=== PATIENT | male | born 1950 | race Caucasian/White ===

== ENCOUNTER 2018-06-23 08:40 | Emergency (ER) | payer MEDICARE, OTHER ==
[2018-06-23] MEDS ORDERED: SODIUM CHLORIDE 0.9% 1,000 ML IV STA ×2 (09:02)
--- NOTE | 2018-06-23 09:17 | ED ---
Weakness HPI - General Chief complaint: Chest Pain Stated complaint: LOW BLOOD PRESSURE Time Seen by Provider: 06/23/18 09:01 Source: patient, RN notes reviewed, old records reviewed Mode of arrival: ambulatory - History of Present Illness Initial comments: This is a 67-year-old male to the ER for evaluation. Presents today for evaluation regarding abnormally low blood pressure abnormally low diastolic blood pressure. Patient remains asymptomatic from this. He does have a history of heart valve surgery. Patient is on 3 blood pressure medications with no recent changes. No recent diet or appetite changes. No recent weight gain or weight loss. MD Complaint: generalized weakness (Patient is without significant complaint of weakness, here for blood pressure recheck) -: week(s) Location: other (no complaints) Severity: mild Consistency: constant Improves with: none Worsens with: none Associated Symptoms: denies other symptoms - Related Data Home Medications Medication Instructions Recorded Confirmed Aspirin 81 mg PO DAILY 05/17/14 06/23/18 Atorvastatin [Lipitor] 40 mg PO HS 05/17/14 06/23/18 Metoprolol Succinate (ER) [Toprol 25 mg PO DAILY 05/17/14 06/23/18 XL] Hydrochlorothiazide 25 mg PO DAILY 06/23/18 06/23/18 Losartan [Cozaar] 25 mg PO DAILY 06/23/18 06/23/18 sitaGLIPtin [Januvia] 100 mg PO DAILY 06/23/18 06/23/18 Allergies Allergy/AdvReac Type Severity Reaction Status Date / Time No Known Allergies Allergy Verified 06/23/18 10:35 Review of Systems ROS Statement: Those systems with pertinent positive or pertinent negative responses have been documented in the HPI. ROS Other: All systems not noted in ROS Statement are negative. Past Medical History Past Medical History: Diabetes Mellitus, Hyperlipidemia, Hypertension History of Any Multi-Drug Resistant Organisms: None Reported Past Surgical History: Cardiac Valve Replacement, Heart Catheterization, Orthopedic Surgery Additional Past Surgical History / Comment(s): rt rotator cuff repair. colonoscopy. aortic valve replacement 05/2013 Past Anesthesia/Blood Transfusion Reactions: No Reported Reaction Smoking Status: Never smoker - Past Family History Brother(s) Family Medical History: Cancer General Exam General appearance: alert, in no apparent distress Head exam: Present: atraumatic, normocephalic, normal inspection Eye exam: Present: normal appearance, PERRL, EOMI. Absent: scleral icterus, conjunctival injection, periorbital swelling ENT exam: Present: normal exam, mucous membranes moist Neck exam: Present: normal inspection. Absent: tenderness, meningismus, lymphadenopathy Respiratory exam: Present: normal lung sounds bilaterally. Absent: respiratory distress, wheezes, rales, rhonchi, stridor Cardiovascular Exam: Present: regular rate, normal rhythm, normal heart sounds, systolic murmur, diastolic murmur, other (Significant murmur). Absent: rubs, gallop, clicks GI/Abdominal exam: Present: soft, normal bowel sounds. Absent: distended, tenderness, guarding, rebound, rigid Extremities exam: Present: normal inspection, full ROM, normal capillary refill. Absent: tenderness, pedal edema, joint swelling, calf tenderness Back exam: Present: normal inspection Neurological exam: Present: alert, oriented X3, CN II-XII intact Psychiatric exam: Present: normal affect, normal mood Skin exam: Present: warm, dry, intact, normal color. Absent: rash Course Vital Signs 06/23/18 06/23/18 08:52 09:53 Temperature 97.5 F L Pulse Rate 63 61 Respiratory 18 16 Rate Blood Pressure 138/57 149/58 O2 Sat by Pulse 100 100 Oximetry - Reevaluation(s) Reevaluation #1: 06/23/18 10:12 Medical records reviewed Reevaluation #2: 06/23/18 10:12 Patient's blood pressure was significantly reviewed reviewed with low diastolic pressure, patient's medication list is also currently reviewed Reevaluation #3: 06/23/18 11:20 Will stop patient's hydrochlorothiazide, patient encouraged oral fluid intake, will follow-up with commissary assistant for further management diastolic hypotension EKG Findings - EKG Comments: EKG Findings:: EKG shows sinus rhythm rate of 60, FL 176, QRS 80, QTC 432 Medical Decision Making - Medical Decision Making 67 male the ER for evaluation. Patient isn't significantly evaluation regarding low diastolic blood pressure. We'll remove hydrochlorothiazide patient's blood pressure medication and discharged - Lab Data Result diagrams: 06/23/18 09:50 06/23/18 09:50 Lab Results 06/23/18 06/23/18 06/23/18 Range/Units 09:50 09:50 09:50 WBC 7.2 (3.8-10.6) k/uL RBC 4.06 L (4.30-5.90) m/uL Hgb 12.5 L (13.0-17.5) gm/dL Hct 37.6 L (39.0-53.0) % MCV 92.8 (80.0-100.0) fL MCH 30.8 (25.0-35.0) pg MCHC 33.3 (31.0-37.0) g/dL RDW 13.4 (11.5-15.5) % Plt Count 194 (150-450) k/uL Neutrophils % 65 % Lymphocytes % 23 % Monocytes % 7 % Eosinophils % 2 % Basophils % 1 % Neutrophils # 4.7 (1.3-7.7) k/uL Lymphocytes # 1.7 (1.0-4.8) k/uL Monocytes # 0.5 (0-1.0) k/uL Eosinophils # 0.2 (0-0.7) k/uL Basophils # 0.1 (0-0.2) k/uL PT (9.0-12.0) sec INR (<1.2) APTT (22.0-30.0) sec Sodium 142 (137-145) mmol/L Potassium 4.6 (3.5-5.1) mmol/L Chloride 109 H (98-107) mmol/L Carbon Dioxide 27 (22-30) mmol/L Anion Gap 6 mmol/L BUN 34 H (9-20) mg/dL Creatinine 1.83 H (0.66-1.25) mg/dL Est GFR (CKD-EPI)AfAm 43 (>60 ml/min/1.73 sqM) Est GFR (CKD-EPI)NonAf 37 (>60 ml/min/1.73 sqM) Glucose 129 H (74-99) mg/dL Plasma Lactic Acid Jay (0.7-2.0) mmol/L Calcium 9.2 (8.4-10.2) mg/dL Phosphorus 3.4 (2.5-4.5) mg/dL Magnesium 2.2 (1.6-2.3) mg/dL Total Bilirubin 0.5 (0.2-1.3) mg/dL AST 22 (17-59) U/L ALT 26 (21-72) U/L Alkaline Phosphatase 62 (38-126) U/L Total Creatine Kinase 101 (55-170) U/L CK-MB (CK-2) 1.6 (0.0-2.4) ng/mL CK-MB (CK-2) Rel Index 1.6 Troponin I <0.012 (0.000-0.034) ng/mL Total Protein 6.6 (6.3-8.2) g/dL Albumin 3.8 (3.5-5.0) g/dL 06/23/18 06/23/18 Range/Units 09:50 09:50 WBC (3.8-10.6) k/uL RBC (4.30-5.90) m/uL Hgb (13.0-17.5) gm/dL Hct (39.0-53.0) % MCV (80.0-100.0) fL MCH (25.0-35.0) pg MCHC (31.0-37.0) g/dL RDW (11.5-15.5) % Plt Count (150-450) k/uL Neutrophils % % Lymphocytes % % Monocytes % % Eosinophils % % Basophils % % Neutrophils # (1.3-7.7) k/uL Lymphocytes # (1.0-4.8) k/uL Monocytes # (0-1.0) k/uL Eosinophils # (0-0.7) k/uL Basophils # (0-0.2) k/uL PT 10.5 (9.0-12.0) sec INR 1.0 (<1.2) APTT 25.1 (22.0-30.0) sec Sodium (137-145) mmol/L Potassium (3.5-5.1) mmol/L Chloride (98-107) mmol/L Carbon Dioxide (22-30) mmol/L Anion Gap mmol/L BUN (9-20) mg/dL Creatinine (0.66-1.25) mg/dL Est GFR (CKD-EPI)AfAm (>60 ml/min/1.73 sqM) Est GFR (CKD-EPI)NonAf (>60 ml/min/1.73 sqM) Glucose (74-99) mg/dL Plasma Lactic Acid Jay 1.2 (0.7-2.0) mmol/L Calcium (8.4-10.2) mg/dL Phosphorus (2.5-4.5) mg/dL Magnesium (1.6-2.3) mg/dL Total Bilirubin (0.2-1.3) mg/dL AST (17-59) U/L ALT (21-72) U/L Alkaline Phosphatase (38-126) U/L Total Creatine Kinase (55-170) U/L CK-MB (CK-2) (0.0-2.4) ng/mL CK-MB (CK-2) Rel Index Troponin I (0.000-0.034) ng/mL Total Protein (6.3-8.2) g/dL Albumin (3.5-5.0) g/dL - Radiology Data Radiology results: report reviewed (Chest x-rays negative for acute disease), image reviewed Disposition Clinical Impression: Hypotension Narrative: Diastolic Hypotension Disposition: HOME SELF-CARE Condition: Good Instructions: Hypotension (ED) Is patient prescribed a controlled substance at d/c from ED?: No Referrals: Seng Murrieta MD [Primary Care Provider] - 1-2 days
--- NOTE | 2018-06-23 10:08 | XR ---
EXAMINATION TYPE: XR chest 2V DATE OF EXAM: 06/23/2018 COMPARISON: 09/13/2013 HISTORY: Shortness of breath TECHNIQUE: Frontal and lateral views of the chest are obtained. FINDINGS: Scattered senescent parenchymal changes noted. Hyperinflation compatible with COPD. No evidence for infiltrate. No evidence for atelectasis. Heart size is stable. Mediastinal structures are stable and grossly unremarkable. No evidence for hilar prominence. Degenerative changes dorsal spine. IMPRESSION: 1. No evidence for acute pulmonary disease.
[2018-06-23 10:24] LABS: Basophils # (A) 0.1 k/uL (0-0.2); Basophils % (A) 1 %; Eosinophils # (A) 0.2 k/uL (0-0.7); Eosinophils % (A) 2 %; HCT 37.6 % (39.0-53.0); HGB 12.5 gm/dL (13.0-17.5); Lymphocytes # (A) 1.7 k/uL (1.0-4.8); Lymphocytes % (A) 23 %; MCH 30.8 pg (25.0-35.0); MCHC 33.3 g/dL (31.0-37.0); MCV 92.8 fL (80.0-100.0); Mean Platelet Volume 7.6; Monocytes # (A) 0.5 k/uL (0-1.0); Monocytes % (A) 7 %; Neutrophils # (A) 4.7 k/uL (1.3-7.7); Neutrophils % (A) 65 %; Platelet Count 194 k/uL (150-450); RBC 4.06 m/uL (4.30-5.90); RDW 13.4 % (11.5-15.5); WBC 7.2 k/uL (3.8-10.6)
[2018-06-23 10:35] LABS: Albumin 3.8 g/dL (3.5-5.0); Calcium 9.2 mg/dL (8.4-10.2); Magnesium 2.2 mg/dL (1.6-2.3); Phosphorus 3.4 mg/dL (2.5-4.5); Potassium 4.6 mmol/L (3.5-5.1); Total Bilirubin 0.5 mg/dL (0.2-1.3); Total Protein 6.6 g/dL (6.3-8.2)
[2018-06-23 10:36] LABS: Partial Thromboplastin Time 25.1 sec (22.0-30.0); Prothrombin Time 10.5 sec (9.0-12.0)
[2018-06-23 10:46] LABS: Creatine Kinase 101 U/L (55-170)
[2018-06-23 11:00] LABS: Creatine Kinase MB 1.6 ng/mL (0.0-2.4); Troponin I <0.012 ng/mL (0.000-0.034)
[2018-06-23 11:34] LABS: Appearance,Urine Clear (Clear); Bilirubin,Urine Negative (Negative); Blood,Urine Negative (Negative); Color,Urine Light Yellow; Glucose,Urine (UA) Negative (Negative); Ketones,Urine Negative (Negative); Leukocyte Esterase,Urine Negative (Negative); Nitrite,Urine Negative (Negative); PH, Urine 5.5 (5.0-8.0); Protein,Urine Negative (Negative); Specific Gravity,Urine 1.013 (1.001-1.035); Urobilinogen,Urine <2.0 mg/dL (<2.0)
[2018-06-23 11:49] VITALS: BP 138/59; PULSE 58; RESP 18; TEMP 98
== END 2018-06-23 11:49 | disposition home or self-care (01) ==
LOC: EC 08:40
DX: I95.9 Hypotension, unspecified (principal); R07.9 Chest pain, unspecified; E11.9 Type 2 diabetes mellitus without complications; E78.5 Hyperlipidemia, unspecified; I10 Essential (primary) hypertension; Z95.2 Presence of prosthetic heart valve; Z95.818 Presence of other cardiac implants and grafts; Z79.82 Long term (current) use of aspirin; Z79.84 Long term (current) use of oral hypoglycemic drugs; Z79.899 Other long term (current) drug therapy
CPT/HCPCS: 36415; 71046; 80053; 81003; 82550; 82553; 83605; 83735; 83880; 84100; 84484; 85025; 85610; 85730; 87086; 93005; 96360; 96361; 99285

== ENCOUNTER 2018-06-24 16:12 | Inpatient (IN) | payer MEDICARE, OTHER ==
--- NOTE | 2018-06-24 16:54 | ED ---
General Adult HPI - General Chief complaint: Chest Pain Stated complaint: Hypotension, chest pain, Sent by Dr. Lara Time Seen by Provider: 06/24/18 16:30 Source: patient, family, RN notes reviewed Mode of arrival: ambulatory Limitations: no limitations - History of Present Illness Initial comments: Patient is a pleasant 67-year-old male presenting to the emergency department after being seen in cardiology office. Patient was seen by Dr. Hester. Patient does have history of aortic valve replacement and previous stenosis. Patient today had aortic insufficiency. There was question of possible infection and Dr. Hester requests blood cultures. Patient has noticed very low diastolic blood pressures at home over the past couple of days. Patient has very mild discomfort described as an ache in the lower chest. No dyspnea. No nausea vomiting. No diaphoresis. Patient did have dental work done recently however was on antibiotics for that. - Related Data Home Medications Medication Instructions Recorded Confirmed Aspirin 81 mg PO DAILY 05/17/14 06/24/18 Atorvastatin [Lipitor] 40 mg PO HS 05/17/14 06/24/18 Metoprolol Succinate (ER) [Toprol 25 mg PO DAILY 05/17/14 06/24/18 XL] Hydrochlorothiazide 25 mg PO DAILY 06/23/18 06/24/18 Losartan [Cozaar] 25 mg PO DAILY 06/23/18 06/24/18 sitaGLIPtin [Januvia] 100 mg PO DAILY 06/23/18 06/24/18 Allergies Allergy/AdvReac Type Severity Reaction Status Date / Time No Known Allergies Allergy Verified 06/24/18 16:53 Review of Systems ROS Statement: Those systems with pertinent positive or pertinent negative responses have been documented in the HPI. ROS Other: All systems not noted in ROS Statement are negative. Constitutional: Denies: fever, chills Eyes: Denies: eye pain ENT: Denies: ear pain Respiratory: Denies: cough, dyspnea Cardiovascular: Reports: chest pain Endocrine: Reports: fatigue Gastrointestinal: Denies: abdominal pain Genitourinary: Denies: dysuria Musculoskeletal: Denies: back pain Skin: Denies: rash Neurological: Denies: weakness Past Medical History Past Medical History: Diabetes Mellitus, Hyperlipidemia, Hypertension History of Any Multi-Drug Resistant Organisms: None Reported Past Surgical History: Cardiac Valve Replacement, Heart Catheterization, Orthopedic Surgery Additional Past Surgical History / Comment(s): rt rotator cuff repair. colonoscopy. aortic valve replacement 05/2013 Past Anesthesia/Blood Transfusion Reactions: No Reported Reaction Past Psychological History: No Psychological Hx Reported Smoking Status: Never smoker Past Alcohol Use History: None Reported Past Drug Use History: None Reported - Past Family History Brother(s) Family Medical History: Cancer General Exam Limitations: no limitations General appearance: alert, in no apparent distress Head exam: Present: atraumatic Eye exam: Present: normal appearance, PERRL ENT exam: Present: normal oropharynx Neck exam: Present: normal inspection Respiratory exam: Present: normal lung sounds bilaterally. Absent: chest wall tenderness Cardiovascular Exam: Present: regular rate, normal rhythm, systolic murmur, diastolic murmur Expanded Peripheral pulses: 2+: Radial (R), Radial (L), Posterior Tibialis (R), Posterior Tibialis (L) GI/Abdominal exam: Present: soft. Absent: tenderness Extremities exam: Present: normal inspection. Absent: pedal edema, calf tenderness Neurological exam: Present: alert Psychiatric exam: Present: normal affect, normal mood Skin exam: Present: normal color Course Vital Signs 06/24/18 16:19 Temperature 97.6 F Pulse Rate 64 Respiratory 18 Rate Blood Pressure 147/55 O2 Sat by Pulse 99 Oximetry EKG Findings - EKG Comments: EKG Findings:: Normal sinus rhythm 61. AR 170. QRS 82. QT 434. QTC 436. Normal axis. Normal QRS. No acute ST change. Medical Decision Making - Medical Decision Making Case was discussed in detail with Dr. Crabtree, covering for Dr. Murrieta, who will admit. Consult will be placed for cardiology as well as infectious disease as was requested by cardiology. - Lab Data Result diagrams: 06/24/18 17:05 06/24/18 17:05 Lab Results 06/24/18 06/24/18 06/24/18 Range/Units 17:05 17:05 17:05 WBC 7.6 (3.8-10.6) k/uL RBC 4.19 L (4.30-5.90) m/uL Hgb 12.6 L (13.0-17.5) gm/dL Hct 38.8 L (39.0-53.0) % MCV 92.5 (80.0-100.0) fL MCH 30.1 (25.0-35.0) pg MCHC 32.6 (31.0-37.0) g/dL RDW 13.4 (11.5-15.5) % Plt Count 200 (150-450) k/uL Neutrophils % 71 % Lymphocytes % 20 % Monocytes % 6 % Eosinophils % 2 % Basophils % 1 % Neutrophils # 5.4 (1.3-7.7) k/uL Lymphocytes # 1.5 (1.0-4.8) k/uL Monocytes # 0.4 (0-1.0) k/uL Eosinophils # 0.1 (0-0.7) k/uL Basophils # 0.1 (0-0.2) k/uL PT (9.0-12.0) sec INR (<1.2) APTT (22.0-30.0) sec Sodium 140 (137-145) mmol/L Potassium 4.7 (3.5-5.1) mmol/L Chloride 108 H (98-107) mmol/L Carbon Dioxide 25 (22-30) mmol/L Anion Gap 7 mmol/L BUN 36 H (9-20) mg/dL Creatinine 1.98 H (0.66-1.25) mg/dL Est GFR (CKD-EPI)AfAm 39 (>60 ml/min/1.73 sqM) Est GFR (CKD-EPI)NonAf 33 (>60 ml/min/1.73 sqM) Glucose 166 H (74-99) mg/dL Plasma Lactic Acid Jay (0.7-2.0) mmol/L Calcium 9.2 (8.4-10.2) mg/dL Total Bilirubin 0.4 (0.2-1.3) mg/dL AST 41 (17-59) U/L ALT 45 (21-72) U/L Alkaline Phosphatase 65 (38-126) U/L Total Creatine Kinase 118 (55-170) U/L CK-MB (CK-2) 1.7 (0.0-2.4) ng/mL CK-MB (CK-2) Rel Index 1.4 Troponin I <0.012 (0.000-0.034) ng/mL Total Protein 6.6 (6.3-8.2) g/dL Albumin 4.0 (3.5-5.0) g/dL Urine Color Urine Appearance (Clear) Urine pH (5.0-8.0) Ur Specific [place] (1.001-1.035) Urine Protein (Negative) Urine Glucose (UA) (Negative) Urine Ketones (Negative) Urine Blood (Negative) Urine Nitrite (Negative) Urine Bilirubin (Negative) Urine Urobilinogen (<2.0) mg/dL Ur Leukocyte Esterase (Negative) 06/24/18 06/24/18 06/24/18 Range/Units 17:05 17:05 17:05 WBC (3.8-10.6) k/uL RBC (4.30-5.90) m/uL Hgb (13.0-17.5) gm/dL Hct (39.0-53.0) % MCV (80.0-100.0) fL MCH (25.0-35.0) pg MCHC (31.0-37.0) g/dL RDW (11.5-15.5) % Plt Count (150-450) k/uL Neutrophils % % Lymphocytes % % Monocytes % % Eosinophils % % Basophils % % Neutrophils # (1.3-7.7) k/uL Lymphocytes # (1.0-4.8) k/uL Monocytes # (0-1.0) k/uL Eosinophils # (0-0.7) k/uL Basophils # (0-0.2) k/uL PT 10.9 (9.0-12.0) sec INR 1.0 (<1.2) APTT 24.9 (22.0-30.0) sec Sodium (137-145) mmol/L Potassium (3.5-5.1) mmol/L Chloride (98-107) mmol/L Carbon Dioxide (22-30) mmol/L Anion Gap mmol/L BUN (9-20) mg/dL Creatinine (0.66-1.25) mg/dL Est GFR (CKD-EPI)AfAm (>60 ml/min/1.73 sqM) Est GFR (CKD-EPI)NonAf (>60 ml/min/1.73 sqM) Glucose (74-99) mg/dL Plasma Lactic Acid Jay 0.9 (0.7-2.0) mmol/L Calcium (8.4-10.2) mg/dL Total Bilirubin (0.2-1.3) mg/dL AST (17-59) U/L ALT (21-72) U/L Alkaline Phosphatase (38-126) U/L Total Creatine Kinase (55-170) U/L CK-MB (CK-2) (0.0-2.4) ng/mL CK-MB (CK-2) Rel Index Troponin I (0.000-0.034) ng/mL Total Protein (6.3-8.2) g/dL Albumin (3.5-5.0) g/dL Urine Color Yellow Urine Appearance Clear (Clear) Urine pH 5.5 (5.0-8.0) Ur Specific [place] 1.015 (1.001-1.035) Urine Protein Trace H (Negative) Urine Glucose (UA) Negative (Negative) Urine Ketones Negative (Negative) Urine Blood Negative (Negative) Urine Nitrite Negative (Negative) Urine Bilirubin Negative (Negative) Urine Urobilinogen <2.0 (<2.0) mg/dL Ur Leukocyte Esterase Negative (Negative) - Radiology Data Radiology results: image reviewed (Chest x-ray shows no acute process) Disposition Clinical Impression: Chest pain Disposition: ADMITTED IP TO THIS HOSP Is patient prescribed a controlled substance at d/c from ED?: No Referrals: Seng Murrieta MD [Primary Care Provider] - 1-2 days Decision Time: 18:20
[2018-06-24] MEDS ORDERED: CEFEPIME 2 GM in SODIUM CHLORIDE 0.9% 50 ML IVPB STA (17:05)
[2018-06-24 17:32] LABS: Basophils # (A) 0.1 k/uL (0-0.2); Basophils % (A) 1 %; Eosinophils # (A) 0.1 k/uL (0-0.7); Eosinophils % (A) 2 %; HCT 38.8 % (39.0-53.0); HGB 12.6 gm/dL (13.0-17.5); Lymphocytes # (A) 1.5 k/uL (1.0-4.8); Lymphocytes % (A) 20 %; MCH 30.1 pg (25.0-35.0); MCHC 32.6 g/dL (31.0-37.0); MCV 92.5 fL (80.0-100.0); Mean Platelet Volume 7.7; Monocytes # (A) 0.4 k/uL (0-1.0); Monocytes % (A) 6 %; Neutrophils # (A) 5.4 k/uL (1.3-7.7); Neutrophils % (A) 71 %; Platelet Count 200 k/uL (150-450); RBC 4.19 m/uL (4.30-5.90); RDW 13.4 % (11.5-15.5); WBC 7.6 k/uL (3.8-10.6)
[2018-06-24 17:34] LABS: Appearance,Urine Clear (Clear); Bilirubin,Urine Negative (Negative); Blood,Urine Negative (Negative); Color,Urine Yellow; Glucose,Urine (UA) Negative (Negative); Ketones,Urine Negative (Negative); Leukocyte Esterase,Urine Negative (Negative); Nitrite,Urine Negative (Negative); PH, Urine 5.5 (5.0-8.0); Protein,Urine Trace (Negative); Specific Gravity,Urine 1.015 (1.001-1.035); Urobilinogen,Urine <2.0 mg/dL (<2.0)
[2018-06-24 17:38] LABS: Calcium 9.2 mg/dL (8.4-10.2); Potassium 4.7 mmol/L (3.5-5.1); Total Bilirubin 0.4 mg/dL (0.2-1.3); Total Protein 6.6 g/dL (6.3-8.2)
[2018-06-24 17:41] LABS: Partial Thromboplastin Time 24.9 sec (22.0-30.0); Prothrombin Time 10.9 sec (9.0-12.0)
[2018-06-24 18:03] LABS: Creatine Kinase 118 U/L (55-170)
--- NOTE | 2018-06-24 18:06 | XR ---
EXAMINATION TYPE: XR chest 2V DATE OF EXAM: 06/24/2018 COMPARISON: 06/23/2018 HISTORY: Chest pain TECHNIQUE: Frontal and lateral views of the chest are obtained. FINDINGS: There is no heart failure nor confluent pneumonic infiltrate. Costophrenic angles are wyatt r. There are sternal wires. Heart size is normal. There are chest leads. IMPRESSION: No active cardiopulmonary disease. Normal heart. No change.
[2018-06-24 18:14] LABS: Creatine Kinase MB 1.7 ng/mL (0.0-2.4); Troponin I <0.012 ng/mL (0.000-0.034)
[2018-06-24] MEDS ORDERED: NITROGLYCERIN SL TABS 0.4 MG TAB SUBLINGUAL PRN (18:20)
[2018-06-24] MEDS ORDERED: ASPIRIN 81 MG PO STA (18:20)
[2018-06-24] MEDS ORDERED: VANCOMYCIN IV PER PHARMACY 1 EACH MISC MISCELLANE PRN (18:55)
[2018-06-24] MEDS ORDERED: VANCOMYCIN 1,750 MG in SODIUM CHLORIDE 0.9% 500 ML 500 ML IVPB ONE (19:15)
[2018-06-24 21:31] LABS: Glucose,Whole Blood 145 mg/dL (75-99)
[2018-06-24] MEDS: INSULIN ASPART 100 UNIT/ML 1 ML 10 ML VIAL SQ SCH (22:12)
[2018-06-24] MEDS: ATORVASTATIN 40 MG TAB PO SCH (22:12)
[2018-06-24] MEDS ORDERED: NALOXONE 0.4 MG/ML 1 ML VIAL IV PRN (23:01)
--- NOTE | 2018-06-24 23:06 | P.HPIM ---
History of Present Illness H&P Date: 06/24/18 Chief Complaint: low diastolic blood pressure readings at home 67-year-old male with history of hypertension, CK D, diabetes mellitus. Patient reports that over the past 2 weeks he's been monitoring his blood pressure and noticed low diastolic blood pressure readings as low as 30 at times. This was totally asymptomatic but he grew concerned and upon follow-up with his jacket changer Dr. Hester he recommended admission to the hospital to rule out infective endocarditis. Due to findings of aortic valve insufficiency upon exam. Patient has history of aortic valve stenosis which was replaced back in 2012. Otherwise patient indicated that he is at his baseline status of health no new issues. He denies any fevers or chills denies any syncope dizziness or lightheadedness denies any palpitations. He does report some very mild chest pain 3-5 out of 10 in severity and the lower left side of chest that's precipitated by certain movements and resolves on its own. In the ED blood cultures were drawn prior to administration of antibiotics. Chest x-ray and EKG both unremarkable Review of Systems Pertinent positives as noted in HPI. All other systems were reviewed and are negative Past Medical History Past Medical History: Diabetes Mellitus, Hyperlipidemia, Hypertension, Osteoarthritis (OA) Additional Past Medical History / Comment(s): pt had dental work(crown) 6 weeks ago-took abx pre procedure. hx of aortic stensosis/murmur(had valve replacemnt 2012), uti, cataracts, shingles 2016 on chest.past exposure to agent orange History of Any Multi-Drug Resistant Organisms: None Reported Past Surgical History: Cardiac Valve Replacement, Heart Catheterization, Orthopedic Surgery Additional Past Surgical History / Comment(s): rt rotator cuff repair. colonoscopy, sharan. aortic valve replacement 05/2013, vasectomy 32 years ago Past Anesthesia/Blood Transfusion Reactions: No Reported Reaction Smoking Status: Never smoker - Past Family History Mother Additional Family Medical History / Comment(s): mom is 91 years old. had aortic stenosis/valve replacement Father Family Medical History: Diabetes Mellitus Additional Family Medical History / Comment(s): dad is 93 years old-late onset dm Brother(s) Family Medical History: Cancer Medications and Allergies Home Medications Medication Instructions Recorded Confirmed Type Aspirin 81 mg PO DAILY 05/17/14 06/24/18 History Atorvastatin [Lipitor] 40 mg PO HS 05/17/14 06/24/18 History Metoprolol Succinate (ER) [Toprol 25 mg PO DAILY 05/17/14 06/24/18 History XL] Hydrochlorothiazide 25 mg PO DAILY 06/23/18 06/24/18 History Losartan [Cozaar] 25 mg PO DAILY 06/23/18 06/24/18 History sitaGLIPtin [Januvia] 100 mg PO DAILY 06/23/18 06/24/18 History Allergies Allergy/AdvReac Type Severity Reaction Status Date / Time No Known Allergies Allergy Verified 06/24/18 16:53 Physical Exam Vitals: Vital Signs Temp Pulse Resp BP Pulse Ox 06/24/18 19:00 59 L 14 143/63 99 06/24/18 18:32 59 L 16 143/63 99 06/24/18 18:00 57 L 15 136/54 99 06/24/18 16:19 97.6 F 64 18 147/55 99 Intake and Output 06/24/18 06/24/18 06/24/18 06:59 14:59 22:59 Intake Total 270 Balance 270 Intake: Oral 270 Other: # Voids 1 Weight 81.647 kg Constitutional: No acute distress, conversant, pleasant Eyes: Anicteric sclerae, moist conjunctiva, no lid-lag Pupils equal round reactive to light ENMT: NC/AT Oropharynx clear, no erythema, exudates Neck: Supple, FROM, no masses, or JVD No carotid bruits No thyromegaly Lungs: Clear to auscultation Clear to percussion Normal respiratory effort, no accessory muscle use Cardiovascular: Heart regular in rate and rhythm, Diastolic murmur, no gallops, or rubs No peripheral edema Abdominal: Soft Nontender, no guarding, rebound or rigidity Abdomen moving with respiration Normoactive bowel sounds No hepatomegaly, No splenomegaly No palpable mass No abdominal wall hernia noted Skin: Normal temperature, tone, texture, turgor No induration No subcutaneous nodules No rash, lesions No ulcers Extremities: No digital cyanosis No clubbing Pedal pulses intact and symmetrical Radial pulses intact and symmetrical No calf tenderness Psychiatric: Alert and oriented to person, place and time Appropriate affect fair judgment Neuro Muscles Strength 5/5 in all 4 extremities Sensation to light touch grossly present throughout Cranial nerves II-XII grossly intact No focal sensory deficits Lymphatics: no palpable cervical or supraclavicular , or inguinal lymph nodes Results CBC & Chem 7: 06/24/18 17:05 06/24/18 17:05 Labs: Abnormal Lab Results - Last 24 Hours (Table) 06/24/18 06/24/18 06/24/18 Range/Units 17:05 17:05 17:05 RBC 4.19 L (4.30-5.90) m/uL Hgb 12.6 L (13.0-17.5) gm/dL Hct 38.8 L (39.0-53.0) % Chloride 108 H (98-107) mmol/L BUN 36 H (9-20) mg/dL Creatinine 1.98 H (0.66-1.25) mg/dL Glucose 166 H (74-99) mg/dL Urine Protein Trace H (Negative) Thrombosis Risk Factor Assmnt - Choose All That Apply Each Risk Factor Represents 2 Points: Age 61-74 years Thrombosis Risk Factor Assessment Total Risk Factor Score: 2 Thrombosis Risk Factor Assessment Level: Low Risk Assessment and Plan Assessment: 67-year-old male with history of COPD and hypertension admitted as an inpatient with anticipated length of stay more than 48 hours patient was referred to by Dr. Hester jacket changer upon seeing the patient in the outpatient clinic for low diastolic blood pressure readings patient was found to have aortic valve insufficiency which was replaced back in 2012 concerning this time for infection patient admitted for further workup and IV antibiotics Plan: Aortic valve insufficiency Cardiology sent for direct admit to rule out infective endocarditis Patient was started on vancomycin Discontinue cefepime Blood cultures were obtained Cardiology to consider transesophageal echo for closer look at the valve Patient otherwise denies any fevers or chills denies any symptoms related to aortic valve insufficiency at this time Patient had aortic valve replacement due to stenosis back in 2012 Other stable chronic conditions CK D stage III currently stable 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
[2018-06-24] MEDS: HEPARIN SODIUM,PORCINE 5,000 UNIT/ML 1 ML VIAL SQ SCH (23:48)
[2018-06-25 00:22] LABS: Creatine Kinase 94 U/L (55-170)
[2018-06-25 00:35] LABS: Creatine Kinase MB 1.3 ng/mL (0.0-2.4); Troponin I <0.012 ng/mL (0.000-0.034)
[2018-06-25] MEDS ORDERED: CEFEPIME 2 GM in SODIUM CHLORIDE 0.9% 50 ML IVPB SCH (05:00)
[2018-06-25 06:09] LABS: Glucose,Whole Blood 112 mg/dL (75-99)
[2018-06-25] MEDS: INSULIN ASPART 100 UNIT/ML 1 ML 10 ML VIAL SQ SCH ×4 (06:13→21:20)
[2018-06-25 06:26] LABS: Basophils % (A) 1 %; Eosinophils # (A) 0.1 k/uL (0-0.7); Eosinophils % (A) 2 %; HCT 35.1 % (39.0-53.0); HGB 11.5 gm/dL (13.0-17.5); Lymphocytes # (A) 1.8 k/uL (1.0-4.8); Lymphocytes % (A) 26 %; MCH 30.8 pg (25.0-35.0); MCHC 32.9 g/dL (31.0-37.0); MCV 93.5 fL (80.0-100.0); Mean Platelet Volume 7.7; Monocytes # (A) 0.4 k/uL (0-1.0); Monocytes % (A) 6 %; Neutrophils # (A) 4.6 k/uL (1.3-7.7); Neutrophils % (A) 64 %; Platelet Count 180 k/uL (150-450); RBC 3.75 m/uL (4.30-5.90); RDW 13.5 % (11.5-15.5); WBC 7.1 k/uL (3.8-10.6)
[2018-06-25 06:48] LABS: Albumin 3.1 g/dL (3.5-5.0); Calcium 8.8 mg/dL (8.4-10.2); Potassium 4.2 mmol/L (3.5-5.1); Total Bilirubin 0.7 mg/dL (0.2-1.3); Total Protein 5.6 g/dL (6.3-8.2)
[2018-06-25 07:02] LABS: Creatine Kinase 85 U/L (55-170)
[2018-06-25 07:15] LABS: Creatine Kinase MB 1.1 ng/mL (0.0-2.4); Troponin I <0.012 ng/mL (0.000-0.034)
[2018-06-25] MEDS: METOPROLOL SUCCINATE (ER) 25 MG TAB.ER.24H PO SCH (07:51)
[2018-06-25] MEDS: LOSARTAN 25 MG TAB PO SCH (07:51)
[2018-06-25] MEDS: ASPIRIN 325 MG TAB PO SCH (07:51)
[2018-06-25] MEDS: HYDROCHLOROTHIAZIDE 25 MG TAB PO SCH (07:51)
[2018-06-25] MEDS: HEPARIN SODIUM,PORCINE 5,000 UNIT/ML 1 ML VIAL SQ SCH ×3 (07:52→23:41)
[2018-06-25] MEDS: VANCOMYCIN 1,250 MG in SODIUM CHLORIDE 0.9% 250 ML IVPB SCH (07:52)
[2018-06-25 11:08] LABS: Glucose,Whole Blood 109 mg/dL (75-99)
--- NOTE | 2018-06-25 13:10 | P.CRDCN ---
History of Present Illness History of present illness: This is Dr. 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 There was no gingival intervention or cleaning performed Denies any fever chills or night sweats PLAN: Transesophageal echo I will await blood cultures Assessment of the aortic valve Discussed with Dr. Hester Discussed with Dr. Thompson Discussed with the patient and his HPI Patient denies any constitutional symptoms but he noted that his diastolic blood pressure was low and he could hear his heart pound and this reminded him of the time before his original aortic valve surgery when he had aortic regurgitation. A 2-D echo performed showed aortic regurgitation and he was sent to the hospital for evaluation for infective endocarditis ROS: No fever chills or rigors, no cough, phlegm or expectoration, no nausea, vomiting or diarrhea, no hematuria, dysuria, no musculoskeletal complaints, no strokes or seizures, no skin lesions. EXAMINATION Systolic blood pressure normal no JVD Soft systolic murmur but a clear diastolic murmur of aortic regurgitation Breath sounds are clear no rhonchi no crackles Abdomen soft nontender Extremities are warm no edema REVIEW OF LABS, ECG Normal white count of 7.1 thousand BUN 29 creatinine 1.7 to GFR in the mid 40s Normal sodium normal potassium Normal lactic acid Normal troponins 3 Past Medical History Past Medical History: Diabetes Mellitus, Hyperlipidemia, Hypertension, Osteoarthritis (OA) Additional Past Medical History / Comment(s): pt had dental work(crown) 6 weeks ago-took abx pre procedure. hx of aortic stensosis/murmur(had valve replacemnt 2012), uti, cataracts, shingles 2016 on chest.past exposure to agent orange History of Any Multi-Drug Resistant Organisms: None Reported Past Surgical History: Cardiac Valve Replacement, Heart Catheterization, Orthopedic Surgery Additional Past Surgical History / Comment(s): rt rotator cuff repair. colonoscopy, sharan. aortic valve replacement 05/2013, vasectomy 32 years ago Past Anesthesia/Blood Transfusion Reactions: No Reported Reaction Smoking Status: Never smoker - Past Family History Mother Additional Family Medical History / Comment(s): mom is 91 years old. had aortic stenosis/valve replacement Father Family Medical History: Diabetes Mellitus Additional Family Medical History / Comment(s): dad is 93 years old-late onset dm Brother(s) Family Medical History: Cancer Medications and Allergies Home Medications Medication Instructions Recorded Confirmed Type Aspirin 81 mg PO DAILY 05/17/14 06/24/18 History Atorvastatin [Lipitor] 40 mg PO HS 05/17/14 06/24/18 History Metoprolol Succinate (ER) [Toprol 25 mg PO DAILY 05/17/14 06/24/18 History XL] Hydrochlorothiazide 25 mg PO DAILY 06/23/18 06/24/18 History Losartan [Cozaar] 25 mg PO DAILY 06/23/18 06/24/18 History sitaGLIPtin [Januvia] 100 mg PO DAILY 06/23/18 06/24/18 History Allergies Allergy/AdvReac Type Severity Reaction Status Date / Time No Known Allergies Allergy Verified 06/24/18 16:53 Physical Exam Vitals: Vital Signs Temp Pulse Pulse Resp BP BP Pulse Ox 06/25/18 07:48 98.1 F 58 L 16 123/59 96 06/25/18 04:00 96.9 F L 60 16 107/58 96 06/25/18 00:00 96.9 F L 60 18 144/64 98 06/24/18 20:00 98.0 F 58 L 18 134/73 99 06/24/18 19:00 59 L 14 143/63 99 06/24/18 18:32 59 L 16 143/63 99 06/24/18 18:00 57 L 15 136/54 99 06/24/18 16:19 97.6 F 64 18 147/55 99 Intake and Output 06/24/18 06/25/18 06/25/18 22:59 06:59 14:59 Intake Total 1167 Balance 1167 Intake: Oral 1167 Other: # Voids 1 2 Weight 81.647 kg 86 kg Results 06/25/18 05:00 06/25/18 05:00 Cardiac Enzymes 06/24/18 06/24/18 06/24/18 Range/Units 17:05 17:05 23:16 AST 41 (17-59) U/L Lactate Dehydrogenase (313-618) U/L CK-MB (CK-2) 1.7 1.3 (0.0-2.4) ng/mL Troponin I <0.012 <0.012 (0.000-0.034) ng/mL 06/25/18 06/25/18 Range/Units 05:00 05:00 AST 26 (17-59) U/L Lactate Dehydrogenase 670 H (313-618) U/L CK-MB (CK-2) 1.1 (0.0-2.4) ng/mL Troponin I <0.012 (0.000-0.034) ng/mL Coagulation 06/24/18 Range/Units 17:05 PT 10.9 (9.0-12.0) sec APTT 24.9 (22.0-30.0) sec Lipids 06/25/18 Range/Units 05:00 Triglycerides 74 (<150) mg/dL Cholesterol 113 (<200) mg/dL HDL Cholesterol 43 (40-60) mg/dL CBC 06/24/18 06/25/18 Range/Units 17:05 05:00 WBC 7.6 7.1 (3.8-10.6) k/uL RBC 4.19 L 3.75 L (4.30-5.90) m/uL Hgb 12.6 L 11.5 L (13.0-17.5) gm/dL Hct 38.8 L 35.1 L (39.0-53.0) % Plt Count 200 180 (150-450) k/uL Comprehensive Metabolic Panel 06/24/18 06/25/18 Range/Units 17:05 05:00 Sodium 140 140 (137-145) mmol/L Potassium 4.7 4.2 (3.5-5.1) mmol/L Chloride 108 H 110 H (98-107) mmol/L Carbon Dioxide 25 24 (22-30) mmol/L BUN 36 H 29 H (9-20) mg/dL Creatinine 1.98 H 1.72 H (0.66-1.25) mg/dL Glucose 166 H 109 H (74-99) mg/dL Calcium 9.2 8.8 (8.4-10.2) mg/dL AST 41 26 (17-59) U/L ALT 45 37 (21-72) U/L Alkaline Phosphatase 65 52 (38-126) U/L Total Protein 6.6 5.6 L (6.3-8.2) g/dL Albumin 4.0 3.1 L (3.5-5.0) g/dL Current Medications Generic Name Dose Route Start Last Admin Trade Name Nathan PRN Reason Stop Dose Admin Aspirin 325 mg 06/25/18 09:00 06/25/18 07:51 Aspirin PO 325 mg DAILY [facility] Administration Atorvastatin Calcium 40 mg 06/24/18 21:00 06/24/18 22:12 Lipitor PO 40 mg HS [facility] Administration Heparin Sodium (Porcine) 5,000 unit 06/25/18 00:00 06/25/18 07:52 Heparin SQ 5,000 unit Q8HR [facility] Administration Hydrochlorothiazide 25 mg 06/25/18 09:00 06/25/18 07:51 Hydrodiuril PO 25 mg DAILY [facility] Administration Vancomycin HCl 1,250 mg/ 250 mls @ 125 mls/hr 06/25/18 09:00 06/25/18 07:52 Sodium Chloride IVPB 125 mls/hr Q24H [facility] Administration Insulin Aspart 0 unit 06/24/18 21:00 06/25/18 06:13 Novolog SQ Not Given ACHS [facility] Protocol Losartan Potassium 25 mg 06/25/18 09:00 06/25/18 07:51 Cozaar PO 25 mg DAILY [facility] Administration Metoprolol Succinate 25 mg 06/25/18 09:00 06/25/18 07:51 Toprol Xl PO 25 mg DAILY [facility] Administration Naloxone HCl 0.2 mg 06/24/18 23:01 Narcan IV Q2M PRN Opioid Reversal Nitroglycerin 0.4 mg 06/24/18 18:20 Nitrostat SUBLINGUAL Q5M PRN Chest Pain Intake and Output 06/24/18 06/25/18 06/25/18 22:59 06:59 14:59 Intake Total 1167 Balance 1167 Intake: Oral 1167 Other: # Voids 1 2 Weight 81.647 kg 86 kg 06/25/18 05:00 06/25/18 05:00
--- NOTE | 2018-06-25 13:28 | P.PN ---
Subjective Progress Note Date: 06/25/18 Principal diagnosis: Aortic regurgitation, rule out endocarditis Patient was seen and examined. No acute events overnight. Patient is no complaints this morning. He denies any chest pain, shortness of breath or palpitations. His reports exertional dyspnea has been getting worse over the past 2 weeks. He denies any upper respiratory infection. He has a history of aortic valve replacement for bicuspid aortic valve done 5 years ago. Apparent echocardiogram done in clinic showed aortic regurgitation. He is scheduled for LUL. Objective - Vital Signs Vital signs: Vital Signs Temp 98.1 F 06/25/18 11:52 Pulse 55 L 06/25/18 11:52 Resp 18 06/25/18 11:52 BP 123/60 06/25/18 11:52 Pulse Ox 97 06/25/18 11:52 Intake & Output 06/24/18 06/25/18 06/25/18 18:59 06:59 18:59 Intake Total 1167 Output Total 1000 Balance 1167 -1000 Weight 81.647 kg 86 kg Intake: Oral 1167 Output: Urine 1000 Other: # Voids 2 - Exam General: [non toxic], [no distress], [appears at stated age] Derm: [warm], [dry] Head: [atraumatic], [normocephalic], [symmetric] Eyes: [EOMI], [no lid lag], [anicteric sclera] Mouth: [no lip lesion], [mucus membranes moist] Cardiovascular: [S1S2 reg], [bradycardia, aortic regurgitation], [positive DP pulse bilateral] Lungs: [CTA bilateral], [no rhonchi, no rales] , [no accessory muscle use] Abdominal: [soft], [ nontender to palpation], [no guarding], [no appreciable organomegaly] Ext: [no gross muscle atrophy], [no edema], [no contractures] Neuro: [no focal neuro deficits] Psych: [Alert], [oriented], [appropriate affect] - Labs CBC & Chem 7: 06/25/18 05:00 06/25/18 05:00 Labs: Abnormal Lab Results - Last 24 Hours (Table) 06/24/18 06/24/18 06/24/18 Range/Units 17:05 17:05 17:05 RBC 4.19 L (4.30-5.90) m/uL Hgb 12.6 L (13.0-17.5) gm/dL Hct 38.8 L (39.0-53.0) % Chloride 108 H (98-107) mmol/L BUN 36 H (9-20) mg/dL Creatinine 1.98 H (0.66-1.25) mg/dL Glucose 166 H (74-99) mg/dL POC Glucose (mg/dL) (75-99) mg/dL Lactate Dehydrogenase (313-618) U/L Total Protein (6.3-8.2) g/dL Albumin (3.5-5.0) g/dL Urine Protein Trace H (Negative) 06/24/18 06/25/18 06/25/18 Range/Units 21:29 05:00 05:00 RBC 3.75 L (4.30-5.90) m/uL Hgb 11.5 L (13.0-17.5) gm/dL Hct 35.1 L (39.0-53.0) % Chloride 110 H (98-107) mmol/L BUN 29 H (9-20) mg/dL Creatinine 1.72 H (0.66-1.25) mg/dL Glucose 109 H (74-99) mg/dL POC Glucose (mg/dL) 145 H (75-99) mg/dL Lactate Dehydrogenase 670 H (313-618) U/L Total Protein 5.6 L (6.3-8.2) g/dL Albumin 3.1 L (3.5-5.0) g/dL Urine Protein (Negative) 06/25/18 06/25/18 Range/Units 06:08 11:05 RBC (4.30-5.90) m/uL Hgb (13.0-17.5) gm/dL Hct (39.0-53.0) % Chloride (98-107) mmol/L BUN (9-20) mg/dL Creatinine (0.66-1.25) mg/dL Glucose (74-99) mg/dL POC Glucose (mg/dL) 112 H 109 H (75-99) mg/dL Lactate Dehydrogenase (313-618) U/L Total Protein (6.3-8.2) g/dL Albumin (3.5-5.0) g/dL Urine Protein (Negative) Microbiology - Last 24 Hours (Table) 06/24/18 17:05 Urine Culture - Preliminary Urine,Voided Assessment and Plan Assessment: Assessment and Plan 1. Aortic valve insufficiency: Seen on echocardiogram done in cardiology clinic. History of bicuspid aortic valve replaced 5 years ago, bovine. Has been suffering symptoms of exertional dyspnea and murmur for the past 2 weeks. There are concerns for an infective endocarditis. No fever or leukocytosis. Continue vancomycin IV. Continue metoprolol 25 mg by mouth daily, losartan 25 mg by mouth daily. Telemetry monitoring. Nothing by mouth after midnight pending LUL in the morning. Follow-up blood cultures. Follow-up cardiology and infectious disease consultation. 2. Hypertension: BP 123/60. Continue metoprolol and losartan. Monitor vitals , titrate medications as necessary. 3. CKD stage III: Creatinine stable at 1.72. Avoid nephrotoxins. Daily BMP. 4. Anemia secondary to CKD: Hemoglobin stable at 11.5. Transfuse if hemoglobin under 7. Daily CBC. 5. Hyperlipidemia: Lipid panel is within normal limits. Continue aspirin and Lipitor. 6. Diabetes mellitus: POC glucose 109. On Januvia at home. Will hold insulin due to nothing by mouth status. Regular Accu-Cheks. 7. DVT prophylaxis: Heparin subcutaneous. Acute coronary syndrome has been ruled out. Cardiology is on consult. Patient nothing by mouth after midnight for LUL. Continuing IV vancomycin for concerns of endocarditis.
[2018-06-25 17:24] LABS: Glucose,Whole Blood 130 mg/dL (75-99)
--- NOTE | 2018-06-25 17:56 | P.CONS ---
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 He is in relatively well until recently when he is under some fatigue and he monitors his blood pressure quite closely. He noticed that the diastolic number was getting lower even in the 30s and he was hearing bit of a roar in his ears at times with each heart beat, similar to that which she's had in the past before the valve was repaired. It appears he was sent in to hospital with concerns to worsening aortic regurgitation is noted by the 2-D echocardiogram. A transesophageal echocardiogram is been scheduled for the morning. With concerns of endocarditis the infectious diseases consultation was requested. Other than the fatigue and the roar in his ears he is fourthly not having other significant symptoms. Distinctly denies any fevers, chills, right years, night sweats or weight loss. He's noted no skin rashes has had no development of tender nodules on his hands or feet. No recent dental work but does utilize dental antibiotic prophylaxis the time of cleanings and interventions. Review of Systems HEENT:Denies headache or acute visual change. Denies sinus or mouth discomforts. Denies neck stiffness or pain. Denies significant oral cavity pain. Denies difficulty on swallowing. As per the HPI roar in his ears associated with a heartbeat Lungs: Denies significant shortness of breath, cough, sputum production, or hemoptysis. Cardiovascular: Denies significant shortness of breath, chest pain, chest wall pain, orthopnea, dyspnea on exertion, syncope Gastrointestinal:Denies nausea, vomiting, diarrhea, constipation, hematemesis, melena, hematochezia. No no significant change of bowel habit noticed. Musculoskeletal: denies significant myalgias or arthralgias. No new joint swelling. Denies new back pain. Skin: Denies new rash or lesions. No new ulcers or wounds are related.. Neuro: Denies headache or visual change. Denies any new onset weakness or difficulty with ambulation. Denies falls or seizures. Psychiatric:Denies anxiety or depression. Endocrine: Mild fatigue, denies significant weight loss or weight gain. Past Medical History Past Medical History: Diabetes Mellitus, Hyperlipidemia, Hypertension, Osteoarthritis (OA) Additional Past Medical History / Comment(s): pt had dental work(crown) 6 weeks ago-took abx pre procedure. hx of aortic stensosis/murmur(had valve replacemnt 2012), uti, cataracts, shingles 2016 on chest.past exposure to agent orange History of Any Multi-Drug Resistant Organisms: None Reported Past Surgical History: Cardiac Valve Replacement, Heart Catheterization, Orthopedic Surgery Additional Past Surgical History / Comment(s): rt rotator cuff repair. colonoscopy, sharan. aortic valve replacement 05/2013, vasectomy 32 years ago Past Anesthesia/Blood Transfusion Reactions: No Reported Reaction Additional Psychological History / Comment(s): and lives with the and the family home. 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 No experience. No recent travel. Animal exposure to parrots no other animal exposures Smoking Status: Never smoker - Past Family History Mother Additional Family Medical History / Comment(s): mom is 91 years old. had aortic stenosis/valve replacement Father Family Medical History: Diabetes Mellitus Additional Family Medical History / Comment(s): dad is 93 years old-late onset dm Brother(s) Family Medical History: Cancer Medications and Allergies Home Medications and Allergies Comment(s): Current Medications Aspirin (Aspirin) 325 mg PO DAILY [facility] Last Admin: 06/25/18 07:51 Dose: 325 mg Atorvastatin Calcium (Lipitor) 40 mg PO HS [facility] Last Admin: 06/24/18 22:12 Dose: 40 mg Heparin Sodium (Porcine) (Heparin) 5,000 unit SQ Q8HR [facility] Last Admin: 06/25/18 16:05 Dose: 5,000 unit Hydrochlorothiazide (Hydrodiuril) 25 mg PO DAILY [facility] Last Admin: 06/25/18 07:51 Dose: 25 mg Vancomycin HCl 1,250 mg/ (Sodium Chloride) 250 mls @ 125 mls/hr IVPB Q24H [facility] Last Admin: 06/25/18 07:52 Dose: 125 mls/hr Insulin Aspart (Novolog) 0 unit SQ ACHS [facility]; Protocol Last Admin: 06/25/18 17:28 Dose: Not Given Losartan Potassium (Cozaar) 25 mg PO DAILY [facility] Last Admin: 06/25/18 07:51 Dose: 25 mg Metoprolol Succinate (Toprol Xl) 25 mg PO DAILY [facility] Last Admin: 06/25/18 07:51 Dose: 25 mg Naloxone HCl (Narcan) 0.2 mg IV Q2M PRN PRN Reason: Opioid Reversal Nitroglycerin (Nitrostat) 0.4 mg SUBLINGUAL Q5M PRN PRN Reason: Chest Pain Home Medications Medication Instructions Recorded Confirmed Type Aspirin 81 mg PO DAILY 05/17/14 06/24/18 History Atorvastatin [Lipitor] 40 mg PO HS 05/17/14 06/24/18 History Metoprolol Succinate (ER) [Toprol 25 mg PO DAILY 05/17/14 06/24/18 History XL] Hydrochlorothiazide 25 mg PO DAILY 06/23/18 06/24/18 History Losartan [Cozaar] 25 mg PO DAILY 06/23/18 06/24/18 History sitaGLIPtin [Januvia] 100 mg PO DAILY 06/23/18 06/24/18 History Allergies Allergy/AdvReac Type Severity Reaction Status Date / Time No Known Allergies Allergy Verified 06/24/18 16:53 Physical Exam Vitals: Vital Signs Temp Pulse Pulse Resp BP BP Pulse Ox 06/25/18 16:00 97.8 F 62 18 122/58 96 06/25/18 11:52 98.1 F 55 L 18 123/60 97 06/25/18 07:48 98.1 F 58 L 16 123/59 96 06/25/18 04:00 96.9 F L 60 16 107/58 96 06/25/18 00:00 96.9 F L 60 18 144/64 98 06/24/18 20:00 98.0 F 58 L 18 134/73 99 06/24/18 19:00 59 L 14 143/63 99 06/24/18 18:32 59 L 16 143/63 99 06/24/18 18:00 57 L 15 136/54 99 Intake and Output 06/25/18 06/25/18 06/25/18 06:59 14:59 22:59 Intake Total 222 Output Total 1000 Balance -778 Intake: Oral 222 Output: Urine 1000 Other: # Voids 2 Weight 86 kg Pleasant 67-year-old male with a appropriate build sitting upright and comfortable after his shower HEENT: Anicteric conjunctiva are pink and moist nasal mucosa grossly intact without significant lesions, there is no thrush. There are no lesions in his hard palate, conjunctiva without lesions Neck: The neck is supple without significant lymphadenopathy or thyromegaly. Lungs: Good bilateral air entry without significant crackles or wheezing. There is no significant bronchial sounds. There is no egophony or dullness. Heart: Regular audible S1 and S2 no S3 or S4 loud holosystolic murmur radiates to the carotids bilaterally Abdomen: Positive bowel sounds soft and nontender without palpable masses or organomegaly. There was no guarding or rebound. Extremities: The upper extremities have excellent pulses they are symmetric, no significant petechiae or telangiectasia. No splinter hemorrhages were noted. The lower extremities are free from significant edema. The peripheral pulses were 2+ and symmetric. No nodules noted in digits Neuro: Awake alert oriented to person place and time. There are no acute new gross focal sensory motor deficits. Results CBC & Chem 7: 06/25/18 05:00 06/25/18 05:00 Labs: Abnormal Lab Results - Last 24 Hours (Table) 06/24/18 06/25/18 06/25/18 Range/Units 21:29 05:00 05:00 RBC 3.75 L (4.30-5.90) m/uL Hgb 11.5 L (13.0-17.5) gm/dL Hct 35.1 L (39.0-53.0) % Chloride 110 H (98-107) mmol/L BUN 29 H (9-20) mg/dL Creatinine 1.72 H (0.66-1.25) mg/dL Glucose 109 H (74-99) mg/dL POC Glucose (mg/dL) 145 H (75-99) mg/dL Lactate Dehydrogenase 670 H (313-618) U/L Total Protein 5.6 L (6.3-8.2) g/dL Albumin 3.1 L (3.5-5.0) g/dL 06/25/18 06/25/18 06/25/18 Range/Units 06:08 11:05 17:22 RBC (4.30-5.90) m/uL Hgb (13.0-17.5) gm/dL Hct (39.0-53.0) % Chloride (98-107) mmol/L BUN (9-20) mg/dL Creatinine (0.66-1.25) mg/dL Glucose (74-99) mg/dL POC Glucose (mg/dL) 112 H 109 H 130 H (75-99) mg/dL Lactate Dehydrogenase (313-618) U/L Total Protein (6.3-8.2) g/dL Albumin (3.5-5.0) g/dL Microbiology - Last 24 Hours (Table) 06/24/18 17:05 Urine Culture - Preliminary Urine,Voided Laboratory Results WBC 7.1 k/uL (3.8-10.6) 06/25/18 05:00 RBC 3.75 m/uL (4.30-5.90) L 06/25/18 05:00 Hgb 11.5 gm/dL (13.0-17.5) L 06/25/18 05:00 Hct 35.1 % (39.0-53.0) L 06/25/18 05:00 MCV 93.5 fL (80.0-100.0) 06/25/18 05:00 MCH 30.8 pg (25.0-35.0) 06/25/18 05:00 MCHC 32.9 g/dL (31.0-37.0) 06/25/18 05:00 RDW 13.5 % (11.5-15.5) 06/25/18 05:00 Plt Count 180 k/uL (150-450) 06/25/18 05:00 Neutrophils % 64 % 06/25/18 05:00 Lymphocytes % 26 % 06/25/18 05:00 Monocytes % 6 % 06/25/18 05:00 Eosinophils % 2 % 06/25/18 05:00 Basophils % 1 % 06/25/18 05:00 Neutrophils # 4.6 k/uL (1.3-7.7) 06/25/18 05:00 Lymphocytes # 1.8 k/uL (1.0-4.8) 06/25/18 05:00 Monocytes # 0.4 k/uL (0-1.0) 06/25/18 05:00 Eosinophils # 0.1 k/uL (0-0.7) 06/25/18 05:00 Basophils # 0.0 k/uL (0-0.2) 06/25/18 05:00 PT 10.9 sec (9.0-12.0) 06/24/18 17:05 INR 1.0 (<1.2) 06/24/18 17:05 APTT 24.9 sec (22.0-30.0) 06/24/18 17:05 Sodium 140 mmol/L (137-145) 06/25/18 05:00 Potassium 4.2 mmol/L (3.5-5.1) 06/25/18 05:00 Chloride 110 mmol/L (98-107) H 06/25/18 05:00 Carbon Dioxide 24 mmol/L (22-30) 06/25/18 05:00 Anion Gap 6 mmol/L 06/25/18 05:00 BUN 29 mg/dL (9-20) H 06/25/18 05:00 Creatinine 1.72 mg/dL (0.66-1.25) H 06/25/18 05:00 Est GFR (CKD-EPI)AfAm 46 (>60 ml/min/1.73 sqM) 06/25/18 05:00 Est GFR (CKD-EPI)NonAf 40 (>60 ml/min/1.73 sqM) 06/25/18 05:00 Glucose 109 mg/dL (74-99) H 06/25/18 05:00 POC Glucose (mg/dL) 130 mg/dL (75-99) H 06/25/18 17:22 POC Glu Electric Transfer Operator RIKY Valentine Baker 06/25/18 17:22 Plasma Lactic Acid Jay 0.9 mmol/L (0.7-2.0) 06/24/18 17:05 Calcium 8.8 mg/dL (8.4-10.2) 06/25/18 05:00 Total Bilirubin 0.7 mg/dL (0.2-1.3) 06/25/18 05:00 AST 26 U/L (17-59) 06/25/18 05:00 ALT 37 U/L (21-72) 06/25/18 05:00 Alkaline Phosphatase 52 U/L (38-126) 06/25/18 05:00 Lactate Dehydrogenase 670 U/L (313-618) H 06/25/18 05:00 Total Creatine Kinase 85 U/L (55-170) 06/25/18 05:00 CK-MB (CK-2) 1.1 ng/mL (0.0-2.4) 06/25/18 05:00 CK-MB (CK-2) Rel Index 1.3 06/25/18 05:00 Troponin I <0.012 ng/mL (0.000-0.034) 06/25/18 05:00 Total Protein 5.6 g/dL (6.3-8.2) L 06/25/18 05:00 Albumin 3.1 g/dL (3.5-5.0) L 06/25/18 05:00 Triglycerides 74 mg/dL (<150) 06/25/18 05:00 Cholesterol 113 mg/dL (<200) 06/25/18 05:00 LDL Cholesterol, Calc 55 mg/dL (0-99) 06/25/18 05:00 HDL Cholesterol 43 mg/dL (40-60) 06/25/18 05:00 Urine Color Yellow 06/24/18 17:05 Urine Appearance Clear (Clear) 06/24/18 17:05 Urine pH 5.5 (5.0-8.0) 06/24/18 17:05 Ur Specific [place] 1.015 (1.001-1.035) 06/24/18 17:05 Urine Protein Trace (Negative) H 06/24/18 17:05 Urine Glucose (UA) Negative (Negative) 06/24/18 17:05 Urine Ketones Negative (Negative) 06/24/18 17:05 Urine Blood Negative (Negative) 06/24/18 17:05 Urine Nitrite Negative (Negative) 06/24/18 17:05 Urine Bilirubin Negative (Negative) 06/24/18 17:05 Urine Urobilinogen <2.0 mg/dL (<2.0) 06/24/18 17:05 Ur Leukocyte Esterase Negative (Negative) 06/24/18 17:05 Microbiology 06/24/18 17:05 Urine,Voided Urine Culture - Preliminary Microbiology 06/24/18 17:05 Urine,Voided Urine Culture - Preliminary Abdominal x-ray: report reviewed (No evidence of pneumonia) Assessment and Plan (1) Aortic regurgitation Narrative/Plan: Very pleasant 67-year-old male presents to Hospital with some minimal symptoms of fatigue but noticing the significant drop of his diastolic blood pressure is low as the 30s associated with a roar in his ears at times associated with heart beat. The patient has been seen by cardiology and there is evidence of aortic regurgitation by his echocardiogram, the transesophageal echocardiogram was planned for the morning to further evaluate. The patient does not seem to have significant symptoms of underlying infection such as fevers or chills and has no stigmata of endocarditis at this time. Mechanical failure of the valve is of concern as his potential for underlying infection to the area. Blood cultures have been obtained and further have been requested and the primary service has already initiated vancomycin therapy. The findings the SHARAN will further help delineate course of therapy including surgery and antibiotics. Fortunately patient is not highly symptomatic at this time. Current Visit: Yes Status: Acute Code(s): I35.1 - NONRHEUMATIC AORTIC (VALVE ) INSUFFICIENCY SNOMED Code(s): 28866741
[2018-06-25] MEDS: ATORVASTATIN 40 MG TAB PO SCH (20:38)
[2018-06-25 21:14] LABS: Glucose,Whole Blood 120 mg/dL (75-99)
[2018-06-26 06:21] LABS: Glucose,Whole Blood 126 mg/dL (75-99)
[2018-06-26] MEDS: INSULIN ASPART 100 UNIT/ML 1 ML 10 ML VIAL SQ SCH ×4 (06:21→20:23)
[2018-06-26] MEDS: VANCOMYCIN 1,250 MG in SODIUM CHLORIDE 0.9% 250 ML IVPB SCH (08:06)
[2018-06-26] MEDS ORDERED: fentaNYL (PF) 50 MCG/ML 2 ML AMP ONE (10:11)
[2018-06-26] MEDS: HEPARIN SODIUM,PORCINE 5,000 UNIT/ML 1 ML VIAL SQ SCH ×3 (10:14→22:57)
[2018-06-26] MEDS ORDERED: IV FLUID CONTINUATION 1,000 ML IV ONE (10:19)
[2018-06-26] MEDS ORDERED: BENZOCAINE SPRAY 1 CAN MUCOUS MEM ONE (10:46)
[2018-06-26] MEDS ORDERED: MIDAZOLAM 2 MG/2 ML VIAL IV ONE ×2 (10:55→10:56)
[2018-06-26] MEDS: fentaNYL (PF) 50 MCG/ML 2 ML AMP IV ONE ×2 (10:55→10:56)
[2018-06-26 11:36] LABS: Glucose,Whole Blood 120 mg/dL (75-99)
--- NOTE | 2018-06-26 11:51 | ECHOT ---
TRANSESOPHAGEAL ECHOCARDIOGRAM DATE OF SERVICE: 06/26/2018 PERFORMING PHYSICIAN: Mikhail Thompson MD, sound controller. PROCEDURE PERFORMED: Transesophageal echocardiogram. INDICATIONS: This is a pleasant 67-year-old gentleman who sees Dr. Lara in the office as an outpatient with a past medical history significant for aortic valve disease and status post aortic valve replacement performed a few years ago at the [facility] where the patient at that point received bioprosthetic aortic valve with bovine valve was seen recently by Dr. Lara in the office where he was experiencing symptoms of chest discomfort and shortness of breath reminded him what he had before the aortic valve was replaced. He was found also to have low diastolic blood pressure. Surface echo was performed and showed moderate to severe aortic insufficiency and the patient was scheduled to undergo a LUL. COMPLICATION: None. LEVEL OF SEDATION: Moderate with sedation length of 15 minutes. PROCEDURE DESCRIPTION: After obtaining an informed consent, explaining the procedure, benefits, risks, complications and alternatives, the patient was brought to the transesophageal echocardiogram suite. A pulse oximetry and heart rate monitors were attached to the patient prior to the procedure. The patient's throat was sprayed using lidocaine locally. Following that, the patient was turned into left lateral position. A bite guard was placed and the patient was then sedated with the above doses of Versed and fentanyl in divided doses. Following that, the transesophageal echocardiogram probe was advanced through the bite guard into the mid esophagus where 2-D echocardiogram images as well as color Doppler images of various cardiac structures were obtained. We evaluated the interatrial septum using 2-D echocardiogram, color Doppler, and contrast study. The procedure was completed. There were no complications. FINDINGS: The left ventricular dimension and systolic function appeared to be within normal limits. The ejection fraction appeared to be in the range of 60%. The right ventricle is of normal size and function. The left atrium appeared to be mildly dilated. The left atrial appendage was not well visualized and probably was ligated during the open heart surgery. The aortic valve is bioprosthetic valve with evidence of severe aortic insufficiency was identified by color-flow Doppler as well as by vena contract. Vena contract measurement came in to be 0.8 cm which was consistent with severe aortic insufficiency. Also, there was reversal flow in the descending aorta. The mitral valve seems to be mildly thickened with moderate MR. There was moderate tricuspid regurgitation seen. CONCLUSION: 1. Dysfunctional bioprosthetic aortic valve with evidence of severe aortic insufficiency. The aortic insufficiency severity was confirmed by color-flow Doppler as well as by vena contractile. The vena contractile was 0.8 cm2. There was also reversal flow in the descending aorta. 2. Normal left ventricular dimension and systolic function with ejection fraction of 60-65 percent. 3. Normal right ventricular dimension and systolic function. 4. Thickened mitral valve leaflets with moderate mitral insufficiency with a central jet. 5. Moderate tricuspid regurgitation seen as well. 6. Intact interatrial septum without any evidence of shunt. 7. The left atrial appendage was not well visualized and probably was ligated during the open heart surgery before. 8. The aortic root appeared to be within normal limits for dimension. 9. There is no evidence of pericardial effusion seen. MMODL / IJN: [id number] /
[2018-06-26] MEDS: ASPIRIN 325 MG TAB PO SCH (11:53)
[2018-06-26] MEDS: LOSARTAN 25 MG TAB PO SCH (11:53)
[2018-06-26] MEDS: METOPROLOL SUCCINATE (ER) 25 MG TAB.ER.24H PO SCH (11:53)
[2018-06-26] MEDS: HYDROCHLOROTHIAZIDE 25 MG TAB PO SCH (11:53)
--- NOTE | 2018-06-26 12:28 | P.PN ---
Subjective Progress Note Date: 06/26/18 Principal diagnosis: Aortic insufficiency, rule out endocarditis Patient was seen and examined. No acute events overnight. Just got back from LUL, has no complaints at this time. He denies any shortness of breath, dizziness, chest pain or palpitations. No nausea or vomiting. No fever or chills. Looking forward to going home. Objective - Vital Signs Vital signs: Vital Signs Temp 98.1 F 06/26/18 08:00 Pulse 75 06/26/18 11:12 Resp 14 06/26/18 10:21 BP 141/75 06/26/18 11:12 Pulse Ox 100 06/26/18 11:12 Intake & Output 06/25/18 06/26/18 06/26/18 18:59 06:59 18:59 Intake Total 222 540 100 Output Total 1000 600 Balance -778 540 -500 Weight 80.6 kg Intake: IV 100 Oral 222 540 Output: Urine 1000 600 Other: # Voids 2 - Exam General: [non toxic], [no distress], [appears at stated age] Derm: [warm], [dry] Head: [atraumatic], [normocephalic], [symmetric] Eyes: [EOMI], [no lid lag], [anicteric sclera] Mouth: [no lip lesion], [mucus membranes moist] Cardiovascular: [S1S2 reg], [diastolic murmur second intercostal space], [ positive DP pulse bilateral] Lungs: [CTA bilateral], [no rhonchi, no rales] , [no accessory muscle use] Abdominal: [soft], [ nontender to palpation], [no guarding], [no appreciable organomegaly] Ext: [no gross muscle atrophy], [no edema], [no contractures] Neuro: [no focal neuro deficits] Psych: [Alert], [oriented], [appropriate affect] - Labs CBC & Chem 7: 06/25/18 05:00 06/25/18 05:00 Labs: Abnormal Lab Results - Last 24 Hours (Table) 06/25/18 06/25/18 06/26/18 Range/Units 17:22 21:13 06:19 POC Glucose (mg/dL) 130 H 120 H 126 H (75-99) mg/dL 06/26/18 Range/Units 11:33 POC Glucose (mg/dL) 120 H (75-99) mg/dL Microbiology - Last 24 Hours (Table) 06/24/18 17:05 Urine Culture - Final Urine,Voided 06/24/18 17:05 Blood Culture - Preliminary Blood No Growth after 24 hours Assessment and Plan Assessment: Assessment and Plan 1. Aortic valve insufficiency: Seen on echocardiogram done in cardiology clinic. History of bicuspid aortic valve replaced 5 years ago, bovine. Has been suffering symptoms of exertional dyspnea and murmur for the past 2 weeks. LUL performed, aortic regurgitation moderate to severe with dysfunctioning valve and no vegetations. Patient is afebrile with no leukocytosis, decreased concerns for endocarditis. Blood cultures are preliminarily negative after 24 hours. Will discontinue vancomycin IV. Continue metoprolol 25 mg by mouth daily, losartan 25 mg by mouth daily. Telemetry monitoring. Follow-up final blood cultures. Follow-up cardiology and infectious disease consultation. 2. Hypertension: BP 141/75. Continue metoprolol and losartan. Monitor vitals , titrate medications as necessary. 3. CKD stage III: Creatinine stable at 1.72. Avoid nephrotoxins. Daily BMP. 4. Anemia secondary to CKD: Hemoglobin stable at 11.5. Transfuse if hemoglobin under 7. Daily CBC. 5. Hyperlipidemia: Lipid panel is within normal limits. Continue aspirin and Lipitor. 6. Diabetes mellitus: POC glucose 120. On Januvia at home. Will hold insulin due to nothing by mouth status. Regular Accu-Cheks. 7. DVT prophylaxis: Heparin subcutaneous. Acute coronary syndrome has been ruled out. LUL shows dysfunctioning valve with moderate to severe aortic insufficiency. No vegetations seen, will DC vancomycin. Will follow cardiology recommendations.
[2018-06-26 16:22] LABS: Glucose,Whole Blood 105 mg/dL (75-99)
--- NOTE | 2018-06-26 17:00 | P.PN ---
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 He is in relatively well until recently when he is under some fatigue and he monitors his blood pressure quite closely. He noticed that the diastolic number was getting lower even in the 30s and he was hearing bit of a roar in his ears at times with each heart beat, similar to that which she's had in the past before the valve was repaired. It appears he was sent in to hospital with concerns to worsening aortic regurgitation is noted by the 2-D echocardiogram. A transesophageal echocardiogram is been scheduled for the morning. With concerns of endocarditis the infectious diseases consultation was requested. Other than the fatigue and the roar in his ears he is fourthly not having other significant symptoms. Distinctly denies any fevers, chills, right years, night sweats or weight loss. He's noted no skin rashes has had no development of tender nodules on his hands or feet. No recent dental work but does utilize dental antibiotic prophylaxis the time of cleanings and interventions. 06/26/2018 finds a patient status post LUL sitting up in the chair feeling well. He's having no fevers or chills and has no other new acute complaints. Objective - Vital Signs Vital signs: Vital Signs Temp 98.1 F 06/26/18 08:00 Pulse 75 06/26/18 11:12 Resp 14 06/26/18 10:21 BP 141/75 06/26/18 11:12 Pulse Ox 100 06/26/18 11:12 Intake & Output 06/25/18 06/26/18 06/26/18 18:59 06:59 18:59 Intake Total 222 540 340 Output Total 1000 600 Balance -778 540 -260 Weight 80.6 kg Intake: IV 100 Oral 222 540 240 Output: Urine 1000 600 Other: # Voids 2 - Exam Pleasant 67-year-old male with a appropriate build sitting upright and comfortable after his shower HEENT: Anicteric conjunctiva are pink and moist nasal mucosa grossly intact without significant lesions, there is no thrush. There are no lesions in his hard palate, conjunctiva without lesions Neck: The neck is supple without significant lymphadenopathy or thyromegaly. Lungs: Good bilateral air entry without significant crackles or wheezing. There is no significant bronchial sounds. There is no egophony or dullness. Heart: Regular audible S1 and S2 no S3 or S4 loud holosystolic murmur radiates to the carotids bilaterally Abdomen: Positive bowel sounds soft and nontender without palpable masses or organomegaly. There was no guarding or rebound. Extremities: The upper extremities have excellent pulses they are symmetric, no significant petechiae or telangiectasia. No splinter hemorrhages were noted. The lower extremities are free from significant edema. The peripheral pulses were 2+ and symmetric. No nodules noted in digits Neuro: Awake alert oriented to person place and time. There are no acute new gross focal sensory motor deficits. - Labs CBC & Chem 7: 06/25/18 05:00 06/25/18 05:00 Labs: Abnormal Lab Results - Last 24 Hours (Table) 06/25/18 06/25/18 06/26/18 Range/Units 17:22 21:13 06:19 POC Glucose (mg/dL) 130 H 120 H 126 H (75-99) mg/dL 06/26/18 06/26/18 Range/Units 11:33 16:18 POC Glucose (mg/dL) 120 H 105 H (75-99) mg/dL Microbiology - Last 24 Hours (Table) 06/25/18 11:51 Blood Culture - Preliminary Blood No Growth after 24 hours 06/25/18 11:46 Blood Culture - Preliminary Blood No Growth after 24 hours 06/24/18 17:05 Urine Culture - Final Urine,Voided 06/24/18 17:05 Blood Culture - Preliminary Blood No Growth after 24 hours Laboratory Results WBC 7.1 k/uL (3.8-10.6) 06/25/18 05:00 RBC 3.75 m/uL (4.30-5.90) L 06/25/18 05:00 Hgb 11.5 gm/dL (13.0-17.5) L 06/25/18 05:00 Hct 35.1 % (39.0-53.0) L 06/25/18 05:00 MCV 93.5 fL (80.0-100.0) 06/25/18 05:00 MCH 30.8 pg (25.0-35.0) 06/25/18 05:00 MCHC 32.9 g/dL (31.0-37.0) 06/25/18 05:00 RDW 13.5 % (11.5-15.5) 06/25/18 05:00 Plt Count 180 k/uL (150-450) 06/25/18 05:00 Neutrophils % 64 % 06/25/18 05:00 Lymphocytes % 26 % 06/25/18 05:00 Monocytes % 6 % 06/25/18 05:00 Eosinophils % 2 % 06/25/18 05:00 Basophils % 1 % 06/25/18 05:00 Neutrophils # 4.6 k/uL (1.3-7.7) 06/25/18 05:00 Lymphocytes # 1.8 k/uL (1.0-4.8) 06/25/18 05:00 Monocytes # 0.4 k/uL (0-1.0) 06/25/18 05:00 Eosinophils # 0.1 k/uL (0-0.7) 06/25/18 05:00 Basophils # 0.0 k/uL (0-0.2) 06/25/18 05:00 PT 10.9 sec (9.0-12.0) 06/24/18 17:05 INR 1.0 (<1.2) 06/24/18 17:05 APTT 24.9 sec (22.0-30.0) 06/24/18 17:05 Sodium 140 mmol/L (137-145) 06/25/18 05:00 Potassium 4.2 mmol/L (3.5-5.1) 06/25/18 05:00 Chloride 110 mmol/L (98-107) H 06/25/18 05:00 Carbon Dioxide 24 mmol/L (22-30) 06/25/18 05:00 Anion Gap 6 mmol/L 06/25/18 05:00 BUN 29 mg/dL (9-20) H 06/25/18 05:00 Creatinine 1.72 mg/dL (0.66-1.25) H 06/25/18 05:00 Est GFR (CKD-EPI)AfAm 46 (>60 ml/min/1.73 sqM) 06/25/18 05:00 Est GFR (CKD-EPI)NonAf 40 (>60 ml/min/1.73 sqM) 06/25/18 05:00 Glucose 109 mg/dL (74-99) H 06/25/18 05:00 POC Glucose (mg/dL) 105 mg/dL (75-99) H 06/26/18 16:18 POC Glu Software Validation Engineer Valentine La 06/26/18 16:18 Plasma Lactic Acid Jay 0.9 mmol/L (0.7-2.0) 06/24/18 17:05 Calcium 8.8 mg/dL (8.4-10.2) 06/25/18 05:00 Total Bilirubin 0.7 mg/dL (0.2-1.3) 06/25/18 05:00 AST 26 U/L (17-59) 06/25/18 05:00 ALT 37 U/L (21-72) 06/25/18 05:00 Alkaline Phosphatase 52 U/L (38-126) 06/25/18 05:00 Lactate Dehydrogenase 670 U/L (313-618) H 06/25/18 05:00 Total Creatine Kinase 85 U/L (55-170) 06/25/18 05:00 CK-MB (CK-2) 1.1 ng/mL (0.0-2.4) 06/25/18 05:00 CK-MB (CK-2) Rel Index 1.3 06/25/18 05:00 Troponin I <0.012 ng/mL (0.000-0.034) 06/25/18 05:00 Total Protein 5.6 g/dL (6.3-8.2) L 06/25/18 05:00 Albumin 3.1 g/dL (3.5-5.0) L 06/25/18 05:00 Triglycerides 74 mg/dL (<150) 06/25/18 05:00 Cholesterol 113 mg/dL (<200) 06/25/18 05:00 LDL Cholesterol, Calc 55 mg/dL (0-99) 06/25/18 05:00 HDL Cholesterol 43 mg/dL (40-60) 06/25/18 05:00 Urine Color Yellow 06/24/18 17:05 Urine Appearance Clear (Clear) 06/24/18 17:05 Urine pH 5.5 (5.0-8.0) 06/24/18 17:05 Ur Specific [place] 1.015 (1.001-1.035) 06/24/18 17:05 Urine Protein Trace (Negative) H 06/24/18 17:05 Urine Glucose (UA) Negative (Negative) 06/24/18 17:05 Urine Ketones Negative (Negative) 06/24/18 17:05 Urine Blood Negative (Negative) 06/24/18 17:05 Urine Nitrite Negative (Negative) 06/24/18 17:05 Urine Bilirubin Negative (Negative) 06/24/18 17:05 Urine Urobilinogen <2.0 mg/dL (<2.0) 06/24/18 17:05 Ur Leukocyte Esterase Negative (Negative) 06/24/18 17:05 Microbiology 06/25/18 11:51 Blood Blood Culture - Preliminary No Growth after 24 hours 06/25/18 11:46 Blood Blood Culture - Preliminary No Growth after 24 hours 06/24/18 17:05 Urine,Voided Urine Culture - Final 06/24/18 17:05 Blood Blood Culture - Preliminary No Growth after 24 hours Assessment and Plan (1) Aortic regurgitation Narrative/Plan: Very pleasant 67-year-old male presents to Hospital with some minimal symptoms of fatigue but noticing the significant drop of his diastolic blood pressure is low as the 30s associated with a roar in his ears at times associated with heart beat. The patient has been seen by cardiology and there is evidence of aortic regurgitation by his echocardiogram, the transesophageal echocardiogram was planned for the morning to further evaluate. The patient does not seem to have significant symptoms of underlying infection such as fevers or chills and has no stigmata of endocarditis at this time. Mechanical failure of the valve is of concern as his potential for underlying infection to the area. Blood cultures have been obtained and further have been requested and the primary service has already initiated vancomycin therapy. The findings the LUL will further help delineate course of therapy including surgery and antibiotics. Fortunately patient is not highly symptomatic at this time. 06/26/2018 status post LUL without evidence of vegetation on the grossly malfunctioning aortic valve. Will be followed up with his lever tender. The patient understands we'll need repair of the valve, unclear if he will be a candidate for TAVR. No evidence of endocarditis, all cultures negative, no evidence of vegetation at time of LUL. Current Visit: Yes Status: Acute Code(s): I35.1 - NONRHEUMATIC AORTIC (VALVE ) INSUFFICIENCY SNOMED Code(s): 41892588
[2018-06-26 20:25] LABS: Glucose,Whole Blood 132 mg/dL (75-99)
[2018-06-26] MEDS: ATORVASTATIN 40 MG TAB PO SCH (20:26)
[2018-06-27 06:10] LABS: Glucose,Whole Blood 121 mg/dL (75-99)
[2018-06-27] MEDS: INSULIN ASPART 100 UNIT/ML 1 ML 10 ML VIAL SQ SCH ×2 (06:17→12:10)
--- NOTE | 2018-06-27 10:01 | P.GSCN ---
<Rachana Finley - Last Filed: 06/27/18 14:43> History of Present Illness Consult date: 06/27/18 Reason for Consult: Severe aortic insufficiency with previous bioprosthetic aortic valve replacement , surgical recommendations Requesting physician: Ezra Cortez History of present illness: This is a 67-year-old active gentleman who follows with Dr. Murrieta on an outpatient basis. He has a previous medical history of aortic stenosis with bioprosthetic aortic valve replacement in [address] Mcmillan at [facility], hypertension, hyperlipidemia, diabetes mellitus, and lifelong nonsmoker but past exposure to agent orange. He presented to [facility] emergency room at the request of Dr. Lara who he had seen in the office on June 24 with complaints of chest discomfort and low diastolic blood pressure. Apparently he has been noticing over the last couple of weeks that his diastolic blood pressure has been low, he did present to the emergency room and was told it was likely faulty blood pressure machines at home. He saw Dr. Lara in the office, his diastolic blood pressure was low, a trans-thoracic echocardiogram was completed demonstrating moderate to severe aortic insufficiency, and the patient was recommended to report to the emergency room. Upon further questioning the patient does state that he has heard a whooshing sound in his ears at night similar to his previous aortic valve replacement. He states he has had some chest discomfort in the area beneath his left breast for some time, it comes and goes, and his last heart catheterization was quite a while ago. He does admit to recent dental work but was on prophylactic antibiotics at the time. The patient was admitted for evaluation and workup. His EKG demonstrated sinus rhythm with no ischemic changes. His troponins were negative. Blood cultures which were drawn which are negative to date. A transesophageal echocardiogram was completed June 26 demonstrating normal LV function with EF 60-65%, severe aortic insufficiency, moderate central mitral regurgitation, and moderate tricuspid regurgitation. Dr. Maxwell from cardiothoracic surgery was consulted regarding surgical recommendations. Review of Systems Review of systems was completed and was negative except as noted. - Cardiovascular Cardiovascular Comment(s): Low blood pressure Reports as per HPI, Reports chest pain Past Medical History Past Medical History: Diabetes Mellitus, Hyperlipidemia, Hypertension, Osteoarthritis (OA) Additional Past Medical History / Comment(s): pt had dental work(crown) 6 weeks ago-took abx pre procedure. hx of aortic stensosis/murmur(had valve replacemnt 2012), uti, cataracts, shingles 2016 on chest.past exposure to agent orange History of Any Multi-Drug Resistant Organisms: None Reported Past Surgical History: Cardiac Valve Replacement, Heart Catheterization, Orthopedic Surgery Additional Past Surgical History / Comment(s): rt rotator cuff repair. colonoscopy, sharan. aortic valve replacement 05/2013, vasectomy 32 years ago Past Anesthesia/Blood Transfusion Reactions: No Reported Reaction Past Psychological History: No Psychological Hx Reported Additional Psychological History / Comment(s): and lives with the and the family home. 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 No recent travel. Animal exposure to parrots no other animal exposures Smoking Status: Never smoker Past Alcohol Use History: None Reported Past Drug Use History: None Reported - Past Family History Mother Additional Family Medical History / Comment(s): mom is 91 years old. had aortic stenosis/valve replacement Father Family Medical History: Diabetes Mellitus Additional Family Medical History / Comment(s): dad is 93 years old-late onset dm Brother(s) Family Medical History: Cancer Medications and Allergies Home Medications Medication Instructions Recorded Confirmed Type Aspirin 81 mg PO DAILY 05/17/14 06/24/18 History Atorvastatin [Lipitor] 40 mg PO HS 05/17/14 06/24/18 History Metoprolol Succinate (ER) [Toprol 25 mg PO DAILY 05/17/14 06/24/18 History XL] Hydrochlorothiazide 25 mg PO DAILY 06/23/18 06/24/18 History Losartan [Cozaar] 25 mg PO DAILY 06/23/18 06/24/18 History sitaGLIPtin [Januvia] 100 mg PO DAILY 06/23/18 06/24/18 History Allergies Allergy/AdvReac Type Severity Reaction Status Date / Time No Known Allergies Allergy Verified 06/24/18 16:53 Surgical - Exam Vital Signs Temp Pulse Resp BP Pulse Ox 97.6 F 64 18 147/55 99 06/24/18 16:19 06/24/18 16:19 06/24/18 16:19 06/24/18 16:19 06/24/18 16:19 - General well developed, well nourished, no distress, no pain - Eyes PERRL, normal ocular movement - ENT no hearing loss - Neck no masses, no bruits, trachea midline - Respiratory Lungs sounds clear bilaterally. Respirations even, nonlabored. Currently on room air with oxygen saturation 96%. No chest wall deformities. - Cardiovascular S1, S2 present. Diastolic murmur present. Palpable peripheral pulses bilaterally. No edema present. No calf pain or tenderness noted. - Abdomen Abdomen: soft, non tender, bowel sounds - Genitourinary Deferred - Rectum Deferred - Integumentary Well healed anterior sternal incision present. no rash, no growths, no abnormal pigmentation - Neurologic normal coordination, normal sensation - Musculoskeletal normal gait, normal posture - Psychiatric oriented to time, oriented to person, oriented to place, speech is normal, memory intact Results - Labs 06/25/18 05:00 06/25/18 05:00 Abnormal Lab Results - Last 24 Hours (Table) 06/26/18 06/26/18 06/26/18 Range/Units 11:33 16:18 20:22 POC Glucose (mg/dL) 120 H 105 H 132 H (75-99) mg/dL 06/27/18 Range/Units 06:09 POC Glucose (mg/dL) 121 H (75-99) mg/dL Microbiology - Last 24 Hours (Table) 06/24/18 17:05 Blood Culture - Preliminary Blood No Growth after 48 hours 06/25/18 11:51 Blood Culture - Preliminary Blood No Growth after 24 hours 06/25/18 11:46 Blood Culture - Preliminary Blood No Growth after 24 hours - Imaging Chest x-ray: report reviewed, image reviewed EKG: image reviewed Additional studies: Transesophageal echocardiogram films reviewed with Dr. Maxwell Assessment and Plan (1) Diabetes Current Visit: Yes Status: Chronic Code(s): E11.9 - TYPE 2 DIABETES MELLITUS WITHOUT COMPLICATIONS SNOMED Code(s): 07229198 (2) Hyperlipidemia Current Visit: Yes Status: Chronic Code(s): E78.5 - HYPERLIPIDEMIA, UNSPECIFIED SNOMED Code(s): 23896039 (3) History of hypertension Current Visit: Yes Status: Chronic Code(s): Z86.79 - PERSONAL HISTORY OF OTHER DISEASES OF THE CIRCULATORY SYSTEM SNOMED Code(s): 852973270 (4) History of aortic stenosis Current Visit: No Status: Resolved Code(s): Z86.79 - PERSONAL HISTORY OF OTHER DISEASES OF THE CIRCULATORY SYSTEM SNOMED Code(s): 596489780 (5) History of aortic valve replacement with bioprosthetic valve Current Visit: Yes Status: Chronic Code(s): Z95.3 - PRESENCE OF XENOGENIC HEART VALVE SNOMED Code(s): 165948835 (6) Aortic regurgitation Current Visit: Yes Status: Acute Code(s): I35.1 - NONRHEUMATIC AORTIC (VALVE ) INSUFFICIENCY SNOMED Code(s): 40483804 (7) Chest pain Current Visit: Yes Status: Acute Code(s): R07.9 - CHEST PAIN, UNSPECIFIED SNOMED Code(s): 25571362 (8) Hypotension Current Visit: Yes Status: Acute Code(s): I95.9 - HYPOTENSION, UNSPECIFIED SNOMED Code(s): 70933993 Plan: The patient was seen and examined at the bedside. Chart/diagnostics were reviewed with Dr. Maxwell. Patient will need his aortic valve replaced, however this is not emergent, the patient may be discharged to home to follow-up as an outpatient, he may elect to follow with his previous cardiothoracic surgeon at [facility] although we are more than happy to perform his surgery here at [facility]. It is the patient's decision to make in coordination with his primary care physician and cheesemaker. We would recommend continuing current medical therapy as per Dr. Murrieta and Dr. Lara. Dr. Maxwell will meet with the patient and his this afternoon to discuss his options, and more recommendations will be forthcoming. Thank you for this consult. We look forward to working with you in the care of your patient. Time with Patient: Greater than 30 <Omari Maxwell R - Last Filed: 06/27/18 15:47> Surgical - Exam Vital Signs Temp Pulse Resp BP Pulse Ox 97.6 F 64 18 147/55 99 06/24/18 16:19 06/24/18 16:19 06/24/18 16:19 06/24/18 16:19 06/24/18 16:19 Results - Labs 06/25/18 05:00 06/25/18 05:00 Abnormal Lab Results - Last 24 Hours (Table) 06/26/18 06/26/18 06/27/18 Range/Units 16:18 20:22 06:09 POC Glucose (mg/dL) 105 H 132 H 121 H (75-99) mg/dL Microbiology - Last 24 Hours (Table) 06/25/18 11:51 Blood Culture - Preliminary Blood No Growth after 48 hours 06/25/18 11:46 Blood Culture - Preliminary Blood No Growth after 48 hours 06/24/18 17:05 Blood Culture - Preliminary Blood No Growth after 48 hours Assessment and Plan Assessment: 67 yom w previous AVR 5 y ago [facility]. 25mm [address] [employer] Trifecta bovine bioprosthesis implanted. Now w bioprosthetic valve deterioration and sever AI. Needs redo AVR. Offered surgery here in [place]. Patiient debating proceeding here vs return to [facility]. OK for discharge home.
[2018-06-27] MEDS: HYDROCHLOROTHIAZIDE 25 MG TAB PO SCH (10:25)
[2018-06-27] MEDS: HEPARIN SODIUM,PORCINE 5,000 UNIT/ML 1 ML VIAL SQ SCH (10:25)
[2018-06-27] MEDS: ASPIRIN 325 MG TAB PO SCH (10:25)
[2018-06-27] MEDS: METOPROLOL SUCCINATE (ER) 25 MG TAB.ER.24H PO SCH (10:25)
[2018-06-27] MEDS: LOSARTAN 25 MG TAB PO SCH (10:25)
[2018-06-27 11:59] LABS: Glucose,Whole Blood 90 mg/dL (75-99)
--- NOTE | 2018-06-27 12:21 | P.PN ---
Subjective Patient is doing well. He is no dizziness lightheadedness a palpitations. Rhythm is normal Blood pressure 126/58 mmHg pulse rate in the 60s afebrile Breath sounds are clear no rhonchi no crackles Heart sounds soft systolic murmur ,clear diastolic murmur audible even in the supine position Abdomen soft nontender Extended is warm no edema The pulmonary blood culture results suggest no growth in 48 hours White count is normal LUL revealed severe aortic regurgitation with palpitations There was no evidence for any obvious vegetations either His dental procedure involved placement of a crown. Suggest Structural problems with the bioprosthetic valve resulting in severe aortic regurgitation without any evidence for vegetations and no growth on blood cultures Hypertension Dyslipidemia Suggest CT surgery evaluation today and I had a detailed discussion with the patient and he would like to see [facility] and speak to Dr. Hester following a final decision on where he would like to proceed with surgery Thereafter, from a cardiac standpoint he can go home on his current medications and follow with Dr. Hester and Dr. Murrieta Objective - Vital Signs Vital signs: Vital Signs Temp 98.0 F 06/27/18 04:00 Pulse 63 06/27/18 04:00 Resp 16 06/27/18 04:00 BP 126/58 06/27/18 04:00 Pulse Ox 96 06/27/18 04:00 Intake & Output 06/26/18 06/27/18 06/27/18 18:59 06:59 18:59 Intake Total 562 150 Output Total 1400 Balance -838 150 Weight 79.9 kg Intake: IV 100 Oral 462 150 Output: Urine 1400 Other: Voiding Method Toilet # Voids 2 2 - Labs CBC & Chem 7: 06/25/18 05:00 06/25/18 05:00 Labs: Abnormal Lab Results - Last 24 Hours (Table) 06/26/18 06/26/18 06/27/18 Range/Units 16:18 20:22 06:09 POC Glucose (mg/dL) 105 H 132 H 121 H (75-99) mg/dL Microbiology - Last 24 Hours (Table) 06/24/18 17:05 Blood Culture - Preliminary Blood No Growth after 48 hours 06/25/18 11:51 Blood Culture - Preliminary Blood No Growth after 24 hours 06/25/18 11:46 Blood Culture - Preliminary Blood No Growth after 24 hours
[2018-06-27 13:24] VITALS: RESP 20
[2018-06-27 13:26] VITALS: BP 124/59; PULSE 59; TEMP 96.6
--- NOTE | 2018-06-27 16:33 | P.DS ---
Providers Date of admission: 06/24/18 18:20 Expected date of discharge: 06/27/18 Attending physician: Arnulfo Crabtree MD Consults: 06/24/18 18:20 Consult Physician Urgent Consulting Provider: Cameron Enrique Consult Reason/Comments: Evaluate for infectious valve disease Do you want consulting provider notified?: Yes Consult Physician Urgent Consulting Provider: Grant Lara Consult Reason/Comments: Cardiac evaluation Do you want consulting provider notified?: Yes 06/26/18 12:34 Consult Physician Routine Consulting Provider: Zohaib Canela Consult Reason/Comments: Valve replacement Do you want consulting provider notified?: Yes Primary care physician: Seng Murrieta Hospital Course: Discharge Diagnosis: 1. bioprosthetic valve deterioration resulting in severe aortic regurgitation 2. Hypertension 3. Dyslipidemia 4. CKD III 5. Anemia secondary to his CKD 6. Diabetes mellitus type 2 on oral medications Hospital Course: Patient is a 67-year-old male with a past medical history of bicuspid aortic valve resulting in severe aortic stenosis with replacement in 2012 with bioprosthetic valve at [facility], shingles, diabetes, hypertension , and dyslipidemia who was referred to the hospital by Dr. Lara with concern for infective endocarditis. Patient had been having low diastolic blood pressures and saw Dr. Lara in the office where and echocardiogram was done showing aortic regurgitation. There is concern for possible infection of the valve. The only admitted to the hospital. Blood cultures were negative for 48 hours. He underwent LUL on 06/26 which demonstrated dysfunctional bioprosthetic aortic valve with evidence of severe aortic insufficiency, moderate mitral insufficiency, moderate tricuspid regurgitation. He was seen by cardiovascular surgery who recommended aortic valve replacement. Patient had been seen by [facility] previously and wishes to speak with Dr. Murrieta and Dr. Lara for advice on which surgeon to follow with. He was also seen by infectious disease during this hospitalization and infectious endocarditis was ruled out. He was determined stable for discharge. He was resumed on his prior home medications. Patient seen and examined at bedside. No overt chest pain, shortness breath, nausea, or vomiting. Vital signs reviewed and stable. General: non toxic, no distress, appears at stated age Derm: warm, dry Head: atraumatic, normocephalic, symmetric Eyes: EOMI, no lid lag, anicteric sclera Mouth: no lip lesion, mucus membranes moist Cardiovascular: S1-S2 with grade 4 murmur, positive posterior tibial pulse bilateral, Lungs: CTA bilateral, no rhonchi, no rales , no accessory muscle use Abdominal: soft, nontender to palpation, no guarding, no appreciable organomegaly Ext: no gross muscle atrophy, no edema, no contractures Neuro: CN II-XI grossly intact, no focal neuro deficits Psych: Alert, oriented, appropriate affect A total of 30 minutes of time were spent preparing this complex discharge summary . Pertinent Studies: LUL- dysfunctional bioprosthetic aortic valve with evidence of severe aortic insufficiency, moderate mitral insufficiency, moderate tricuspid regurgitation. Patient Condition at Discharge: Fair Plan - Discharge Summary Discharge Rx Participant: No New Discharge Prescriptions: Continue Metoprolol Succinate (ER) [Toprol XL] 25 mg PO DAILY Atorvastatin [Lipitor] 40 mg PO HS Aspirin 81 mg PO DAILY sitaGLIPtin [Januvia] 100 mg PO DAILY Losartan [Cozaar] 25 mg PO DAILY Hydrochlorothiazide 25 mg PO DAILY Discharge Medication List Aspirin 81 mg PO DAILY 05/17/14 [History] Atorvastatin [Lipitor] 40 mg PO HS 05/17/14 [History] Metoprolol Succinate (ER) [Toprol XL] 25 mg PO DAILY 05/17/14 [History] Hydrochlorothiazide 25 mg PO DAILY 06/23/18 [History] Losartan [Cozaar] 25 mg PO DAILY 06/23/18 [History] sitaGLIPtin [Januvia] 100 mg PO DAILY 06/23/18 [History] Follow up Appointment(s)/Referral(s): Omari Maxwell MD [STAFF PHYSICIAN] - As Needed (if you decide to have surgery here) Seng Murrieta MD [Primary Care Provider] - 1-2 days Grant Lara MD [STAFF PHYSICIAN] - 1 Week Activity/Diet/Wound Care/Special Instructions: Diet: Low salt, Diabetic diet Please follow-up with your primary care provider within 1-2 days of discharge. Please follow-up with cardiology Dr. Lara within 1 week of discharge. Please take all medications as advised. Discharge Disposition: HOME SELF-CARE
--- NOTE | 2018-06-27 17:46 | P.PN ---
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 He is in relatively well until recently when he is under some fatigue and he monitors his blood pressure quite closely. He noticed that the diastolic number was getting lower even in the 30s and he was hearing bit of a roar in his ears at times with each heart beat, similar to that which she's had in the past before the valve was repaired. It appears he was sent in to hospital with concerns to worsening aortic regurgitation is noted by the 2-D echocardiogram. A transesophageal echocardiogram is been scheduled for the morning. With concerns of endocarditis the infectious diseases consultation was requested. Other than the fatigue and the roar in his ears he is fourthly not having other significant symptoms. Distinctly denies any fevers, chills, right years, night sweats or weight loss. He's noted no skin rashes has had no development of tender nodules on his hands or feet. No recent dental work but does utilize dental antibiotic prophylaxis the time of cleanings and interventions. 06/26/2018 finds a patient status post LUL sitting up in the chair feeling well. He's having no fevers or chills and has no other new acute complaints. 06/27/2018 patient is now doing well. Has been seen by cardiovascular surgery. We'll discuss with his primary care physician his overall plan. Objective - Vital Signs Vital signs: Vital Signs Temp 96.6 F L 06/27/18 12:00 Pulse 59 L 06/27/18 12:00 Resp 20 06/27/18 12:00 BP 124/59 06/27/18 12:00 Pulse Ox 100 06/27/18 12:00 Intake & Output 06/26/18 06/27/18 06/27/18 18:59 06:59 18:59 Intake Total 562 150 Output Total 1400 Balance -838 150 Weight 79.9 kg Intake: IV 100 Oral 462 150 Output: Urine 1400 Other: Voiding Method Toilet # Voids 2 2 - Exam Pleasant 67-year-old male with a appropriate build sitting upright and comfortable after his shower HEENT: Anicteric conjunctiva are pink and moist nasal mucosa grossly intact without significant lesions, there is no thrush. There are no lesions in his hard palate, conjunctiva without lesions Neck: The neck is supple without significant lymphadenopathy or thyromegaly. Lungs: Good bilateral air entry without significant crackles or wheezing. There is no significant bronchial sounds. There is no egophony or dullness. Heart: Regular audible S1 and S2 no S3 or S4 loud holosystolic murmur radiates to the carotids bilaterally Abdomen: Positive bowel sounds soft and nontender without palpable masses or organomegaly. There was no guarding or rebound. Extremities: The upper extremities have excellent pulses they are symmetric, no significant petechiae or telangiectasia. No splinter hemorrhages were noted. The lower extremities are free from significant edema. The peripheral pulses were 2+ and symmetric. No nodules noted in digits Neuro: Awake alert oriented to person place and time. There are no acute new gross focal sensory motor deficits. - Labs CBC & Chem 7: 06/25/18 05:00 06/25/18 05:00 Labs: Abnormal Lab Results - Last 24 Hours (Table) 06/26/18 06/27/18 Range/Units 20:22 06:09 POC Glucose (mg/dL) 132 H 121 H (75-99) mg/dL Microbiology - Last 24 Hours (Table) 06/25/18 11:51 Blood Culture - Preliminary Blood No Growth after 48 hours 06/25/18 11:46 Blood Culture - Preliminary Blood No Growth after 48 hours 06/24/18 17:05 Blood Culture - Preliminary Blood No Growth after 48 hours Laboratory Results WBC 7.1 k/uL (3.8-10.6) 06/25/18 05:00 RBC 3.75 m/uL (4.30-5.90) L 06/25/18 05:00 Hgb 11.5 gm/dL (13.0-17.5) L 06/25/18 05:00 Hct 35.1 % (39.0-53.0) L 06/25/18 05:00 MCV 93.5 fL (80.0-100.0) 06/25/18 05:00 MCH 30.8 pg (25.0-35.0) 06/25/18 05:00 MCHC 32.9 g/dL (31.0-37.0) 06/25/18 05:00 RDW 13.5 % (11.5-15.5) 06/25/18 05:00 Plt Count 180 k/uL (150-450) 06/25/18 05:00 Neutrophils % 64 % 06/25/18 05:00 Lymphocytes % 26 % 06/25/18 05:00 Monocytes % 6 % 06/25/18 05:00 Eosinophils % 2 % 06/25/18 05:00 Basophils % 1 % 06/25/18 05:00 Neutrophils # 4.6 k/uL (1.3-7.7) 06/25/18 05:00 Lymphocytes # 1.8 k/uL (1.0-4.8) 06/25/18 05:00 Monocytes # 0.4 k/uL (0-1.0) 06/25/18 05:00 Eosinophils # 0.1 k/uL (0-0.7) 06/25/18 05:00 Basophils # 0.0 k/uL (0-0.2) 06/25/18 05:00 PT 10.9 sec (9.0-12.0) 06/24/18 17:05 INR 1.0 (<1.2) 06/24/18 17:05 APTT 24.9 sec (22.0-30.0) 06/24/18 17:05 Sodium 140 mmol/L (137-145) 06/25/18 05:00 Potassium 4.2 mmol/L (3.5-5.1) 06/25/18 05:00 Chloride 110 mmol/L (98-107) H 06/25/18 05:00 Carbon Dioxide 24 mmol/L (22-30) 06/25/18 05:00 Anion Gap 6 mmol/L 06/25/18 05:00 BUN 29 mg/dL (9-20) H 06/25/18 05:00 Creatinine 1.72 mg/dL (0.66-1.25) H 06/25/18 05:00 Est GFR (CKD-EPI)AfAm 46 (>60 ml/min/1.73 sqM) 06/25/18 05:00 Est GFR (CKD-EPI)NonAf 40 (>60 ml/min/1.73 sqM) 06/25/18 05:00 Glucose 109 mg/dL (74-99) H 06/25/18 05:00 POC Glucose (mg/dL) 90 mg/dL (75-99) 06/27/18 11:43 POC Glu Bus Driver ID Giulia Mcclain 06/27/18 11:43 Plasma Lactic Acid Jay 0.9 mmol/L (0.7-2.0) 06/24/18 17:05 Calcium 8.8 mg/dL (8.4-10.2) 06/25/18 05:00 Total Bilirubin 0.7 mg/dL (0.2-1.3) 06/25/18 05:00 AST 26 U/L (17-59) 06/25/18 05:00 ALT 37 U/L (21-72) 06/25/18 05:00 Alkaline Phosphatase 52 U/L (38-126) 06/25/18 05:00 Lactate Dehydrogenase 670 U/L (313-618) H 06/25/18 05:00 Total Creatine Kinase 85 U/L (55-170) 06/25/18 05:00 CK-MB (CK-2) 1.1 ng/mL (0.0-2.4) 06/25/18 05:00 CK-MB (CK-2) Rel Index 1.3 06/25/18 05:00 Troponin I <0.012 ng/mL (0.000-0.034) 06/25/18 05:00 Total Protein 5.6 g/dL (6.3-8.2) L 06/25/18 05:00 Albumin 3.1 g/dL (3.5-5.0) L 06/25/18 05:00 Triglycerides 74 mg/dL (<150) 06/25/18 05:00 Cholesterol 113 mg/dL (<200) 06/25/18 05:00 LDL Cholesterol, Calc 55 mg/dL (0-99) 06/25/18 05:00 HDL Cholesterol 43 mg/dL (40-60) 06/25/18 05:00 Urine Color Yellow 06/24/18 17:05 Urine Appearance Clear (Clear) 06/24/18 17:05 Urine pH 5.5 (5.0-8.0) 06/24/18 17:05 Ur Specific [place] 1.015 (1.001-1.035) 06/24/18 17:05 Urine Protein Trace (Negative) H 06/24/18 17:05 Urine Glucose (UA) Negative (Negative) 06/24/18 17:05 Urine Ketones Negative (Negative) 06/24/18 17:05 Urine Blood Negative (Negative) 06/24/18 17:05 Urine Nitrite Negative (Negative) 06/24/18 17:05 Urine Bilirubin Negative (Negative) 06/24/18 17:05 Urine Urobilinogen <2.0 mg/dL (<2.0) 06/24/18 17:05 Ur Leukocyte Esterase Negative (Negative) 06/24/18 17:05 Microbiology 06/25/18 11:51 Blood Blood Culture - Preliminary No Growth after 48 hours 06/25/18 11:46 Blood Blood Culture - Preliminary No Growth after 48 hours 06/24/18 17:05 Blood Blood Culture - Preliminary No Growth after 48 hours 06/24/18 17:05 Urine,Voided Urine Culture - Final Assessment and Plan (1) Aortic regurgitation Narrative/Plan: Very pleasant 67-year-old male presents to Hospital with some minimal symptoms of fatigue but noticing the significant drop of his diastolic blood pressure is low as the 30s associated with a roar in his ears at times associated with heart beat. The patient has been seen by cardiology and there is evidence of aortic regurgitation by his echocardiogram, the transesophageal echocardiogram was planned for the morning to further evaluate. The patient does not seem to have significant symptoms of underlying infection such as fevers or chills and has no stigmata of endocarditis at this time. Mechanical failure of the valve is of concern as his potential for underlying infection to the area. Blood cultures have been obtained and further have been requested and the primary service has already initiated vancomycin therapy. The findings the LUL will further help delineate course of therapy including surgery and antibiotics. Fortunately patient is not highly symptomatic at this time. 06/26/2018 status post LUL without evidence of vegetation on the grossly malfunctioning aortic valve. Will be followed up with his cigar head perforator. The patient understands we'll need repair of the valve, unclear if he will be a candidate for TAVR. No evidence of endocarditis, all cultures negative, no evidence of vegetation at time of LUL. 06/27/2018 cultures are all negative. No evidence of endocarditis. Has been seen by cardiothoracic surgery with Dr. Maxwell. The patient will need aortic valve replacement. I have encouraged patient that he can have the surgery locally, is well within the abilities of our facility and was certainly be much easier and the family for visitation. He will be discharged home and have plans for surgery within the next few weeks. He understands it is some urgency Status: Acute Code(s): I35.1 - NONRHEUMATIC AORTIC (VALVE) INSUFFICIENCY SNOMED Code(s): 82974470
== END 2018-06-27 16:46 | disposition home or self-care (01) | DRG 316 ==
LOC: EC 16:12 → 3SCARD 18:20
PROVIDERS: ADMIT Family Medicine; ATTEND Family Medicine
DX: T82.897A Other specified complication of cardiac prosthetic devices, implants and grafts, initial encounter (principal); E11.9 Type 2 diabetes mellitus without complications; E78.5 Hyperlipidemia, unspecified; Y71.2 Prosthetic and other implants, materials and accessory cardiovascular devices associated with adverse incidents; I12.9 Hypertensive chronic kidney disease with stage 1 through stage 4 chronic kidney disease, or unspecified chronic kidney disease; E11.22 Type 2 diabetes mellitus with diabetic chronic kidney disease; N18.3 Chronic kidney disease, stage 3 (moderate); D63.1 Anemia in chronic kidney disease; I95.9 Hypotension, unspecified; I08.3 Combined rheumatic disorders of mitral, aortic and tricuspid valves; Z77.098 Contact with and (suspected) exposure to other hazardous, chiefly nonmedicinal, chemicals; Z86.19 Personal history of other infectious and parasitic diseases; Z87.440 Personal history of urinary (tract) infections; Z98.42 Cataract extraction status, left eye; Z98.41 Cataract extraction status, right eye; Z79.82 Long term (current) use of aspirin; Z79.899 Other long term (current) drug therapy; Z82.49 Family history of ischemic heart disease and other diseases of the circulatory system; Z83.3 Family history of diabetes mellitus; Z79.84 Long term (current) use of oral hypoglycemic drugs; J44.9 Chronic obstructive pulmonary disease, unspecified
CPT/HCPCS: 36415; 71046; 80053; 80061; 81003; 82550; 82553; 83605; 83615; 84484; 85025; 85610; 85730; 87040; 87086; 93005; 93312; 93320; 93325; 96365; 99285

== ENCOUNTER 2018-07-08 05:48 | Day surgery (SDC) | payer MEDICARE, OTHER ==
[2018-07-05 15:54] VITALS: BMI 26.4
[~2018-07-08 05:48] MED LIST: ALPRAZolam 0.25 MG TAB PO PRN; ALPRAZolam 0.5 MG TAB PO PRN; ASPIRIN 325 MG TAB PO STA; ATORVASTATIN 80 MG TAB PO STA; NITROGLYCERIN SL TABS 0.4 MG TAB SUBLINGUAL PRN; SODIUM CHLORIDE 0.9% 1,000 ML in EMPTY BAG 1 BAG IV ONE
[2018-07-08 06:28] LABS: Glucose,Whole Blood 120 mg/dL (75-99)
[2018-07-08] MEDS ORDERED: SODIUM CHLORIDE 0.9% 1,000 ML IV ONE (06:33)
[2018-07-08 06:35] LABS: Basophils # (A) 0.1 k/uL (0-0.2); Basophils % (A) 1 %; Eosinophils # (A) 0.2 k/uL (0-0.7); Eosinophils % (A) 2 %; HGB 12.8 gm/dL (13.0-17.5); Lymphocytes # (A) 1.9 k/uL (1.0-4.8); Lymphocytes % (A) 29 %; MCH 31.3 pg (25.0-35.0); MCHC 33.6 g/dL (31.0-37.0); MCV 93.1 fL (80.0-100.0); Mean Platelet Volume 7.9; Monocytes # (A) 0.5 k/uL (0-1.0); Monocytes % (A) 7 %; Neutrophils # (A) 3.9 k/uL (1.3-7.7); Neutrophils % (A) 58 %; Platelet Count 184 k/uL (150-450); RBC 4.08 m/uL (4.30-5.90); RDW 13.3 % (11.5-15.5); WBC 6.7 k/uL (3.8-10.6)
[2018-07-08 06:51] LABS: Potassium 4.4 mmol/L (3.5-5.1)
[2018-07-08 06:52] LABS: Calcium 9.5 mg/dL (8.4-10.2)
[2018-07-08] MEDS ORDERED: LIDOCAINE 1% INJ 10MG/ML (20 ML MDV) ONE (08:30)
[2018-07-08] MEDS ORDERED: fentaNYL (PF) 50 MCG/ML 2 ML AMP ONE (09:01)
[2018-07-08] MEDS ORDERED: MIDAZOLAM 2 MG/2 ML VIAL IV ONE (09:05)
[2018-07-08] MEDS ORDERED: fentaNYL (PF) 50 MCG/ML 2 ML AMP IV ONE (09:05)
[2018-07-08] MEDS ORDERED: LIDOCAINE 1% INJ 10MG/ML (20 ML MDV) SQ ONE (09:05)
[2018-07-08] MEDS ORDERED: IOPAMIDOL-370 125ML BTL INJ ONE (09:14)
--- NOTE | 2018-07-08 09:56 | CC ---
CARDIAC CATHETERIZATION REPORT INDICATION: Severe prosthetic valve regurgitation in a patient who needs aortic valve replacement. The patient had aortic valve replacement 5 years ago and has developed severe aortic regurgitation secondary to prosthetic valve malfunction. Developed prosthetic valve regurgitation and needs a cardiac cath prior to aortic valve replacement. He has renal insufficiency. His creatinine was 1.7. I brought him in early to hydrate. Pre-cath electrolytes showed that the creatinine and BUN are elevated. We will admit him and hydrate him after the cath. PROCEDURE NOTE: After obtaining informed consent, left heart catheterization and coronary angiogram were performed via the right femoral artery using standard Orin catheters. The patient tolerated the procedure well without any obvious immediate complications. A femoral angiogram was performed and Angio-Seal was deployed. The patient's contrast threshold was 92 mL. We used around 40 to 45 mL of IV contrast to do this cath. FINDINGS: 1. HEMODYNAMICS: Central aortic pressure is 140/70 mm. 2. ANGIOGRAPHIC DATA: Left main coronary artery is a normal-sized vessel and is free of stenosis. Divides into left anterior descending coronary artery, ramus intermedius and circumflex coronary artery. LAD shows a mild atherosclerotic plaque in its midportion. The ramus intermedius is free of significant stenosis. Circumflex coronary artery and its branches are free of significant disease. Right coronary artery is a large codominant system and is free of significant stenosis. 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 PLAN: Patient will undergo aortic valve replacement. His initial valve replacement was done at [facility] by Dr. Aceves and since his last visit with me apparently contacted their office and they are currently in the process of scheduling him for surgery. We will send the cath report to them. MMODL / IJN: [id number] /
[2018-07-08] MEDS ORDERED: RX INFO: IV CONTRAST WAS GIVEN 1 EACH MISC MISCELLANE PRN (10:28)
[2018-07-08 12:13] LABS: Glucose,Whole Blood 133 mg/dL (75-99)
[2018-07-08] MEDS ORDERED: ACETAMINOPHEN TAB 325 MG TAB PO PRN (16:52)
[2018-07-08] MEDS: SODIUM CHLORIDE 0.9% 1,000 ML IV SCH (16:53)
[2018-07-08 17:10] LABS: Glucose,Whole Blood 92 mg/dL (75-99)
--- NOTE | 2018-07-08 18:56 | CONS ---
CONSULTATION Patient is currently in extended-care stay. REASON FOR CONSULT: Renal failure. HISTORY OF PRESENT ILLNESS: Patient is a 67-year-old male who had a cardiac catheterization done by Dr. Lara today. 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 Patient denies any known history of kidney disease. However, his serum creatinine was 1.72 on 06/25/2018. He had another creatinine of 1.83 on 06/23, and previous labs in 2016 showed a creatinine of 1.5. Serum creatinine this morning was 2.13. UA showed trace protein. Previous UA on 06/23 did not show any proteinuria. Patient denies use of any nonsteroidal anti-inflammatory agents. He is maintained on Cozaar at home. Blood pressure currently is ranging from 124 to 142 mmHg systolic. PAST MEDICAL HISTORY: 1. Valvular heart disease. 2. Type 2 diabetes. 3. Hyperlipidemia. 4. Hypertension. 5. Osteoarthritis. PAST SURGICAL HISTORY: 1. Previous aortic valve replacement at [facility]. 2. Cardiac catheterization. 3. Vasectomy. 4. LUL. 5. Colonoscopy. 6. Rotator cuff repair. SOCIAL HISTORY: Negative for smoking, drug abuse or alcohol abuse. MEDICATIONS: Medications at home prior to admission included: 1. Losartan. 2. Hydrochlorothiazide. 3. Toprol. 4. Januvia. 5. Lipitor. 6. Aspirin. PHYSICAL EXAMINATION: Patient is comfortable, awake, alert, oriented x3. He is not in any acute distress. Blood pressure is 124/59, heart rate 59 per minute. He is afebrile. EXAMINATION OF THE HEART: S1, S2. EXAMINATION OF LUNGS: Bilateral breath sounds are heard. ABDOMEN: Soft, non-tender. Examination of lower extremities shows no evidence of edema. VINYL INSTALLER exam is grossly intact. LABS: Labs from today show serum creatinine of 2.13 on 07/08/2018. BUN of 29 on 06/25/2018. UA shows trace protein. Previous UA showed no protein. Sodium is 141 and potassium is 4.4 mEq/L. ASSESSMENT: 1. Chronic kidney disease, NKF stage III, secondary to nephrosclerosis. UA is quite benign. Baseline creatinine appears to be around 1.7 mg/dL. We will check an ultrasound of the kidneys. Patient will need outpatient followup for CKD management. He is advised to avoid continuous use of nonsteroidal anti-inflammatory agents. 2. Acute kidney injury. Patient's creatinine has gone up to about 2.1 from previous reading of 1.7. I will continue with the MERA inhibitors for now. However, patient is advised to hold off on the losartan for about 2-3 days post cardiac catheterization. He is also advised to avoid hypotension. May continue with IV fluids for now. 3. Valvular heart disease with aortic valve regurgitation, status post aortic valve replacement at [facility], currently with ongoing regurgitation, status post cardiac catheterization. Patient will follow up at [facility]. 4. Hypertension, controlled. Hold off on the angiotensin receptor blockers for about 2 days post catheterization. PLAN: Repeat labs in a.m. Check ultrasound of the kidneys, which can be done as outpatient. Patient will need outpatient followup in about 1-2 weeks. Thank you for this consultation. Will continue to follow the patient with you during his hospitalization. MMODL / IJN: [id number] /
[2018-07-08 19:51] LABS: Glucose,Whole Blood 172 mg/dL (75-99)
[2018-07-08] MEDS: LINAGLIPTIN 5 MG TABLET PO SCH (20:15)
[2018-07-08] MEDS ORDERED: ATORVASTATIN 40 MG TAB PO SCH (21:00)
[2018-07-09] MEDS: SODIUM CHLORIDE 0.9% 1,000 ML IV SCH (05:13)
[2018-07-09 06:36] LABS: Glucose,Whole Blood 136 mg/dL (75-99)
[2018-07-09 07:43] VITALS: BP 109/54; PULSE 54; RESP 18; TEMP 97.6
[2018-07-09] MEDS: LINAGLIPTIN 5 MG TABLET PO SCH (07:58)
[2018-07-09] MEDS ORDERED: METOPROLOL SUCCINATE (ER) 25 MG TAB.ER.24H PO SCH (09:00)
[2018-07-09] MEDS ORDERED: ASPIRIN 81 MG PO SCH (09:00)
[2018-07-09] MEDS ORDERED: LOSARTAN 25 MG TAB PO SCH (09:00)
[2018-07-09] MEDS ORDERED: HYDROCHLOROTHIAZIDE 25 MG TAB PO SCH (09:00)
[2018-07-09 09:49] LABS: Calcium 8.9 mg/dL (8.4-10.2); Potassium 4.8 mmol/L (3.5-5.1)
--- NOTE | 2018-07-09 12:09 | DS ---
DISCHARGE SUMMARY DATE OF ADMISSION: 07/08/2018. DATE OF DISCHARGE: 07/09/2018. FINAL DIAGNOSIS: Severe caustic valve regurgitation. PROCEDURE PERFORMED: Left heart catheterization. HOSPITAL COURSE: This is a 67-year-old gentleman with history of caustic valve regurgitation that underwent cardiac catheterization to prepare him for redo valve surgery. He did not have significant obstructive CAD. He has renal insufficiency and he is admitted to hospital for hydration. This morning patient is doing well and is free of symptoms. PHYSICAL EXAM: Afebrile. Heart rate is 54, blood pressure is 110/54, respiratory rate is 18, O2 sat is 98% on room air. There is no jugular venous distention, carotid upstroke is normal. There is no bruit. Chest exam reveals good air entry bilaterally. Heart exam reveals first and second heart sounds, no diastolic murmur. Abdomen is soft. Exam of extremities did not reveal any edema. Peripheral pulses are felt. Groin is free of bleeding, bruit, hematoma; foot pulses are intact. Hemoglobin is 12.0, platelet count is 184. Potassium is 4.4. BUN is 35, creatinine is 2.1. ASSESSMENT: 1. Severe prostatic valve regurgitation, status post catheterization. 2. Chronic renal insufficiency. I will check the electrolytes this morning, he is stable to be discharged home. Pathology has seen him in the hospital and they will follow him in the outpatient setting. MMODL / IJN: [id number] /
== END 2018-07-09 10:41 | disposition home or self-care (01) ==
LOC: CATHCVL 05:48 → 1SOBS 09:17 → CATHCVL 17:32 → 1SOBS 17:32 → CATHCVL 07-09 10:41
PROVIDERS: ATTEND Internal Medicine Cardiovascular Disease
DX: I25.10 Atherosclerotic heart disease of native coronary artery without angina pectoris (principal); T82.897A Other specified complication of cardiac prosthetic devices, implants and grafts, initial encounter; I35.1 Nonrheumatic aortic (valve) insufficiency; Z95.2 Presence of prosthetic heart valve; E11.22 Type 2 diabetes mellitus with diabetic chronic kidney disease; I12.9 Hypertensive chronic kidney disease with stage 1 through stage 4 chronic kidney disease, or unspecified chronic kidney disease; N18.3 Chronic kidney disease, stage 3 (moderate); N17.9 Acute kidney failure, unspecified; E78.5 Hyperlipidemia, unspecified; M19.90 Unspecified osteoarthritis, unspecified site; Z79.84 Long term (current) use of oral hypoglycemic drugs; Z79.82 Long term (current) use of aspirin; Z79.899 Other long term (current) drug therapy; Z82.49 Family history of ischemic heart disease and other diseases of the circulatory system
CPT/HCPCS: 93454; 80048 ×2; 85025; C1760; C1894; C1769; J2250; J2001; J3010; Q9967

== ENCOUNTER → 2018-10-05 | Outpatient (CLI) | payer MEDICARE, OTHER ==
--- NOTE | 2018-10-05 10:05 | US ---
EXAMINATION TYPE: US kidneys/renal and bladder DATE OF EXAM: 10/05/2018 COMPARISON: CT from 2013. CLINICAL HISTORY: N17.9 acute kidney injury. Abnormal labs. No pain. EXAM MEASUREMENTS: Right Kidney: 8.2 x 5.1 x 4.9 cm Left Kidney: 9.0 x 4.0 x 4.4 cm Right Kidney: No hydronephrosis or masses seen Left Kidney: No hydronephrosis or masses seen Bladder: Not greatly distended Bilateral Jets seen There is no evidence for hydronephrosis at this point in time. No nephrolithiasis is seen. No dk s are identified on images saved. The urinary bladder is anechoic. Bilateral ureteral jets are seen . IMPRESSION: No hydronephrosis is evident bilaterally.
== END | disposition home or self-care (01) ==
LOC: RADUSWWP 09:25
PROVIDERS: ATTEND Internal Medicine Nephrology
DX: N17.9 Acute kidney failure, unspecified (principal)
CPT/HCPCS: 76770

== ENCOUNTER → 2018-12-15 | Outpatient (CLI) | payer MEDICARE, OTHER ==
[2018-12-15 15:15] LABS: Anisocytosis Slight; HCT 32.1 % (39.0-53.0); HGB 10.1 gm/dL (13.0-17.5); Hypochromasia Slight; MCH 25.7 pg (25.0-35.0); MCHC 31.5 g/dL (31.0-37.0); MCV 81.6 fL (80.0-100.0); Mean Platelet Volume 8.8; Platelet Count 243 k/uL (150-450); RBC 3.94 m/uL (4.30-5.90); RDW 16.3 % (11.5-15.5); WBC 5.3 k/uL (3.8-10.6)
[2018-12-15 15:32] LABS: Appearance,Urine Clear (Clear); Bilirubin,Urine Negative (Negative); Blood,Urine Negative (Negative); Color,Urine Yellow; Glucose,Urine (UA) Negative (Negative); Ketones,Urine Negative (Negative); Leukocyte Esterase,Urine Negative (Negative); Nitrite,Urine Negative (Negative); PH, Urine 5.5 (5.0-8.0); Protein,Urine Negative (Negative); Specific Gravity,Urine 1.015 (1.001-1.035); Urobilinogen,Urine <2.0 mg/dL (<2.0)
[2018-12-15 18:37] LABS: Iron Saturation 56.72 (15.00-50.00)
[2018-12-15 18:44] LABS: Vitamin D 25 Hydroxy 37.7 ng/mL (30.0-100.0)
[2018-12-15 18:54] LABS: Parathyroid Hormone Intact 110.6 pg/mL (14.0-72.0)
[2018-12-15 18:57] LABS: African American GFR (CKD) 32.1 (60.0-200.0); Albumin 4.2 g/dL (3.80-4.90); Albumin/Globulin Ratio 1.75 (1.60-3.17); BUN/Creat Ratio 13.04 Ratio (12.00-20.00); Calcium 9.2 mg/dL (8.7-10.3); Globulin 2.4 g/dL (1.6-3.3); Magnesium 1.9 mg/dL (1.5-2.4); Phosphorus 3.9 mg/dL (2.4-5.1); Potassium 4.8 mmol/L (3.5-5.5); Total Bilirubin 0.3 mg/dL (0.3-1.2); Total Protein 6.6 g/dL (6.2-8.2)
== END | disposition home or self-care (01) ==
LOC: LABWHC1 14:56
PROVIDERS: ATTEND Nurse Practitioner Family
DX: D64.9 Anemia, unspecified (principal); M10.9 Gout, unspecified; N17.9 Acute kidney failure, unspecified; E55.9 Vitamin D deficiency, unspecified; N39.0 Urinary tract infection, site not specified
CPT/HCPCS: 36415; 80053; 81003; 82306; 82728; 83540; 83550; 83735; 83970; 84100; 84550; 85027

== ENCOUNTER → 2019-03-28 | Outpatient (CLI) | payer MEDICARE, OTHER ==
[2019-03-28 15:59] LABS: HCT 35.6 % (39.0-53.0); MCH 29.7 pg (25.0-35.0); MCHC 33.8 g/dL (31.0-37.0); MCV 87.9 fL (80.0-100.0); Mean Platelet Volume 6.5; Platelet Count 234 k/uL (150-450); RBC 4.05 m/uL (4.30-5.90); RDW 14.5 % (11.5-15.5); WBC 6.4 k/uL (3.8-10.6)
[2019-03-28 16:23] LABS: Appearance,Urine Clear (Clear); Bilirubin,Urine Negative (Negative); Blood,Urine Negative (Negative); Color,Urine Yellow; Glucose,Urine (UA) Negative (Negative); Ketones,Urine Negative (Negative); Leukocyte Esterase,Urine Negative (Negative); Nitrite,Urine Negative (Negative); Protein,Urine Negative (Negative); Specific Gravity,Urine 1.018 (1.001-1.035); Urobilinogen,Urine <2.0 mg/dL (<2.0)
[2019-03-28 23:33] LABS: Iron Saturation 36.1 (15.00-50.00)
[2019-03-28 23:46] LABS: Ferritin 19.8 ng/mL (22.0-322.0)
[2019-03-29 00:32] LABS: African American GFR (CKD) 43.2 (60.0-200.0); Albumin 4.2 g/dL (3.80-4.90); Albumin/Globulin Ratio 2.33 (1.60-3.17); Anion Gap 8.9 mmol/L (4.00-12.00); Calcium 9.2 mg/dL (8.7-10.3); Carbon Dioxide 23.1 mmol/L (21.6-31.8); Globulin 1.8 g/dL (1.6-3.3); Magnesium 1.9 mg/dL (1.5-2.4); Phosphorus 3.2 mg/dL (2.4-5.1); Potassium 4.5 mmol/L (3.5-5.5); Total Bilirubin 0.3 mg/dL (0.3-1.2); Uric Acid 7.4 mg/dL (3.7-8.7)
== END | disposition home or self-care (01) ==
LOC: LABWHC1 14:56
PROVIDERS: ATTEND Nurse Practitioner Family
DX: M10.9 Gout, unspecified (principal); N39.0 Urinary tract infection, site not specified; E21.3 Hyperparathyroidism, unspecified; D64.9 Anemia, unspecified; N17.9 Acute kidney failure, unspecified; E11.9 Type 2 diabetes mellitus without complications; E55.9 Vitamin D deficiency, unspecified
CPT/HCPCS: 36415; 80053; 81003; 82728; 83540; 83550; 83735; 83970; 84100; 84550; 85027

== ENCOUNTER → 2020-04-26 | Outpatient (CLI) | payer MEDICARE, OTHER ==
[2020-04-26 13:39] LABS: Basophils # (A) 0.1 k/uL (0-0.2); Basophils % (A) 1 %; Eosinophils # (A) 0.1 k/uL (0-0.7); Eosinophils % (A) 1 %; HGB 13.8 gm/dL (13.0-17.5); Lymphocytes # (A) 2.2 k/uL (1.0-4.8); Lymphocytes % (A) 32 %; MCH 31.2 pg (25.0-35.0); MCHC 32.2 g/dL (31.0-37.0); MCV 96.9 fL (80.0-100.0); Mean Platelet Volume 7.6; Monocytes # (A) 0.3 k/uL (0-1.0); Monocytes % (A) 4 %; Neutrophils # (A) 4.2 k/uL (1.3-7.7); Neutrophils % (A) 60 %; Platelet Count 194 k/uL (150-450); RBC 4.44 m/uL (4.30-5.90); WBC 6.9 k/uL (3.8-10.6)
[2020-04-26 13:41] LABS: Appearance,Urine Clear (Clear); Bilirubin,Urine Negative (Negative); Blood,Urine Negative (Negative); Color,Urine Yellow; Glucose,Urine (UA) 2+ (Negative); Ketones,Urine Negative (Negative); Leukocyte Esterase,Urine Negative (Negative); Nitrite,Urine Negative (Negative); PH, Urine 5.5 (5.0-8.0); Protein,Urine Negative (Negative); Urobilinogen,Urine <2.0 mg/dL (<2.0)
[2020-04-26 20:13] LABS: Ferritin 42.1 ng/mL (22.0-322.0)
[2020-04-26 20:32] LABS: % Iron Saturation 36.82 (15.00-50.00); African American GFR (CKD) 40.2 (60.0-200.0); Albumin 4.5 g/dL (3.80-4.90); Anion Gap 7.3 mmol/L (4.00-12.00); BUN/Creat Ratio 14.74 Ratio (12.00-20.00); Calcium 9.3 mg/dL (8.7-10.3); Carbon Dioxide 26.7 mmol/L (21.6-31.8); Magnesium 2.2 mg/dL (1.5-2.4); Non-African American GFR(CKD) 34.7 (60.0-200.0); Phosphorus 3.4 mg/dL (2.4-5.1); Potassium 4.6 mmol/L (3.5-5.5); Uric Acid 7.5 mg/dL (3.7-8.7)
== END | disposition home or self-care (01) ==
LOC: LABWHC1 12:23
PROVIDERS: ATTEND Internal Medicine Nephrology
DX: N18.30 Chronic kidney disease, stage 3 unspecified (principal); D63.1 Anemia in chronic kidney disease; M10.9 Gout, unspecified; N39.0 Urinary tract infection, site not specified; E21.3 Hyperparathyroidism, unspecified; R80.9 Proteinuria, unspecified
CPT/HCPCS: 36415; 80048; 81003; 82040; 82306; 82728; 83540; 83550; 83735; 83970; 84100; 84550; 85025

== ENCOUNTER → 2020-09-23 | Outpatient (CLI) | payer MEDICARE, OTHER ==
[2020-09-23 12:29] LABS: Appearance,Urine Clear (Clear); Bilirubin,Urine Negative (Negative); Blood,Urine Negative (Negative); Color,Urine Colorless; Glucose,Urine (UA) Negative (Negative); Ketones,Urine Negative (Negative); Leukocyte Esterase,Urine Negative (Negative); Nitrite,Urine Negative (Negative); Protein,Urine Negative (Negative); Specific Gravity,Urine 1.004 (1.001-1.035); Urobilinogen,Urine <2.0 mg/dL (<2.0)
[2020-09-23 12:40] LABS: Creatinine,Urine Random 28.3 mg/dL; Protein/Creatinine Ratio,Urine 0.459
[2020-09-23 19:51] LABS: Basophils # (A) 0.05 X 10*3/uL (0.00-0.10); Basophils % (A) 0.7 %; Eosinophils % (A) 2.6 %; HCT 41.3 % (39.6-50.0); HGB 13.1 g/dL (13.0-17.0); Lymphocytes % (A) 39.3 %; MCH 30.5 pg (27.0-32.0); MCHC 31.7 g/dL (32.0-37.0); MCV 96.3 fL (80.0-97.0); Mean Platelet Volume 11.9 fL (9.5-12.2); Monocytes # (A) 0.84 X 10*3/uL (0.20-1.00); Neutrophils # (A) 3.52 X 10*3/uL (1.80-7.70); Neutrophils % (A) 46.1 %; Platelet Count 217 X 10*3/uL (140-440); RBC 4.29 X 10*6/uL (4.40-5.60); WBC 7.63 X 10*3/uL (4.50-10.00)
[2020-09-23 20:02] LABS: % Iron Saturation 39.37 (15.00-50.00); African American GFR (CKD) 39.9 (60.0-200.0); Albumin 4.5 g/dL (3.80-4.90); Anion Gap 6.7 mmol/L (4.00-12.00); BUN/Creat Ratio 13.68 Ratio (12.00-20.00); Calcium 9.3 mg/dL (8.7-10.3); Carbon Dioxide 26.3 mmol/L (21.6-31.8); Magnesium 2.2 mg/dL (1.5-2.4); Non-African American GFR(CKD) 34.5 (60.0-200.0); Phosphorus 3.3 mg/dL (2.4-5.1); Potassium 4.4 mmol/L (3.5-5.5); Uric Acid 7.1 mg/dL (3.7-8.7)
== END | disposition home or self-care (01) ==
LOC: LABWHC1 11:12
PROVIDERS: ATTEND Nurse Practitioner Family
DX: D64.9 Anemia, unspecified (principal); E21.3 Hyperparathyroidism, unspecified; E55.9 Vitamin D deficiency, unspecified; N18.30 Chronic kidney disease, stage 3 unspecified; N39.0 Urinary tract infection, site not specified; M10.9 Gout, unspecified
CPT/HCPCS: 36415; 80048; 81003; 82040; 82306; 82570; 82728; 83540; 83550; 83735; 83970; 84100; 84156; 84550; 85025

== ENCOUNTER 2020-11-27 08:19 | Day surgery (SDC) | payer MEDICARE, OTHER ==
[2020-11-26 13:31] VITALS: BMI 26.6
[2020-11-27] MEDS ORDERED: LACTATED RINGERS 1,000 ML IV SCH (08:29)
[2020-11-27] MEDS ORDERED: LIDOCAINE 1% (10MG/ML) FOR IV START INTRADERMA PRN (08:29)
[2020-11-27 08:40] VITALS: TEMP 97.7
[2020-11-27 08:51] LABS: Glucose,Whole Blood 139 mg/dL (75-99)
[2020-11-27] MEDS ORDERED: PROPOFOL 10 MG/ML 20 ML VIAL IV ONE (09:12)
--- NOTE | 2020-11-27 09:28 | P.PCN ---
Date of Procedure: 11/27/20 Procedure(s) Performed: BRIEF HISTORY: Patient is a 70-year-old pleasant white male scheduled for an elective colonoscopy as a part of screening for colorectal neoplasia. PROCEDURE PERFORMED: Colonoscopy. PREOPERATIVE DIAGNOSIS: Screening for colorectal neoplasia. IV sedation per Anesthesia. PROCEDURE: After informed consent was obtained, the patient, was brought into the endoscopy unit. IV sedation was administered by Anesthesia under continuous monitoring. Digital rectal examination was normal. Initially the Olympus CF-160 flexible video colonoscope was then inserted in the rectum, gradually advanced into the cecum without any difficulty. Careful examination was performed as the scope was gradually being withdrawn. Ileocecal valve and the appendiceal orifice were visualized and appeared normal. Prep was excellent. Mucosa of the cecum, ascending colon, transverse colon, descending colon, sigmoid colon, and rectum appeared normal. Retroflexion was performed in the rectum and no lesions were seen. The patient tolerated the procedure well. IMPRESSION: Normal-appearing colon from rectum to cecum with no evidence of colitis or colorectal neoplasia. RECOMMENDATIONS: Findings of this examination were discussed with the patient well as his family. He was advised to have a repeat screening colonoscopy in 10 years..
[2020-11-27 09:54] VITALS: BP 130/80; PULSE 50; RESP 16
== END 2020-11-27 10:05 | disposition home or self-care (01) ==
LOC: ORWHC2ENDO 08:19
PROVIDERS: ATTEND Internal Medicine Gastroenterology
DX: Z12.11 Encounter for screening for malignant neoplasm of colon (principal); I10 Essential (primary) hypertension; E78.5 Hyperlipidemia, unspecified; Z95.2 Presence of prosthetic heart valve; Z77.29 Contact with and (suspected) exposure to other hazardous substances; N28.9 Disorder of kidney and ureter, unspecified; E11.9 Type 2 diabetes mellitus without complications; M19.90 Unspecified osteoarthritis, unspecified site; H57.9 Unspecified disorder of eye and adnexa; Z79.82 Long term (current) use of aspirin; Z79.899 Other long term (current) drug therapy
CPT/HCPCS: J2704; G0121

== ENCOUNTER → 2021-02-11 | Outpatient (CLI) | payer MEDICARE, OTHER ==
[2021-02-11 15:53] LABS: Chol/HDL Ratio 2.47; LDL Cholesterol,Calculated 48.4 mg/dL (0.0-131.0); VLDL Calculation 14.6 mg/dL (5.00-40.00)
== END | disposition home or self-care (01) ==
LOC: LABWHC1 08:57
PROVIDERS: ATTEND Internal Medicine Cardiovascular Disease
DX: E78.2 Mixed hyperlipidemia (principal)
CPT/HCPCS: 36415; 80061; 84450; 84460

== ENCOUNTER → 2021-04-03 | Outpatient (CLI) | payer MEDICARE, OTHER ==
[2021-04-03 14:42] LABS: Appearance,Urine Clear (Clear); Bilirubin,Urine Negative (Negative); Blood,Urine Negative (Negative); Color,Urine Light Yellow; Glucose,Urine (UA) Negative (Negative); Ketones,Urine Negative (Negative); Leukocyte Esterase,Urine Negative (Negative); Nitrite,Urine Negative (Negative); Protein,Urine Negative (Negative); Specific Gravity,Urine 1.008 (1.001-1.035); Urobilinogen,Urine <2.0 mg/dL (<2.0)
[2021-04-03 14:57] LABS: Creatinine,Urine Random 62.3 mg/dL; Protein/Creatinine Ratio,Urine 0.161
[2021-04-03 19:07] LABS: Basophils # (A) 0.06 X 10*3/uL (0.00-0.10); Eosinophils # (A) 0.15 X 10*3/uL (0.04-0.35); Eosinophils % (A) 2.6 %; HCT 40.7 % (39.6-50.0); HGB 12.9 g/dL (13.0-17.0); Lymphocytes # (A) 2.19 X 10*3/uL (0.90-5.00); Lymphocytes % (A) 37.4 %; MCH 30.2 pg (27.0-32.0); MCHC 31.7 g/dL (32.0-37.0); MCV 95.3 fL (80.0-97.0); Mean Platelet Volume 11.6 fL (9.5-12.2); Monocytes # (A) 0.66 X 10*3/uL (0.20-1.00); Monocytes % (A) 11.3 %; Neutrophils # (A) 2.79 X 10*3/uL (1.80-7.70); Neutrophils % (A) 47.5 %; Platelet Count 202 X 10*3/uL (140-440); RBC 4.27 X 10*6/uL (4.40-5.60); RDW 12.9 % (11.5-14.5); WBC 5.86 X 10*3/uL (4.50-10.00)
[2021-04-04 03:07] LABS: % Iron Saturation 36.01 (15.00-50.00); African American GFR (CKD) 42.9 (60.0-200.0); Albumin 4.3 g/dL (3.8-4.9); Anion Gap 13.5 mmol/L (4.00-12.00); BUN/Creat Ratio 13.02 Ratio (12.00-20.00); Blood Urea Nitrogen 23.3 mg/dL (9.0-27.0); Calcium 9.1 mg/dL (8.7-10.3); Carbon Dioxide 21.8 mmol/L (21.6-31.8); Ferritin 61.1 ng/mL (22.0-322.0); Magnesium 2.3 mg/dL (1.5-2.4); Phosphorus 3.2 mg/dL (2.4-5.1); Uric Acid 7.1 mg/dL (3.7-8.7)
== END | disposition home or self-care (01) ==
LOC: LABWHC1 12:39
PROVIDERS: ATTEND Nurse Practitioner Family
DX: M10.9 Gout, unspecified (principal); D64.9 Anemia, unspecified; E55.9 Vitamin D deficiency, unspecified; N25.81 Secondary hyperparathyroidism of renal origin; N18.32 Chronic kidney disease, stage 3b; N39.0 Urinary tract infection, site not specified; R80.9 Proteinuria, unspecified
CPT/HCPCS: 36415; 80048; 81003; 82040; 82306; 82570; 82728; 83540; 83550; 83735; 84100; 84156; 84550; 85025

== ENCOUNTER → 2021-10-15 | Outpatient (CLI) | payer MEDICARE, OTHER ==
[2021-10-15 17:41] LABS: Creatinine,Urine Random 72.5 mg/dL; Protein/Creatinine Ratio,Urine 0.124
[2021-10-15 23:25] LABS: Basophils # (A) 0.08 X 10*3/uL (0.00-0.10); Basophils % (A) 0.8 %; Eosinophils # (A) 0.11 X 10*3/uL (0.04-0.35); Eosinophils % (A) 1.1 %; HCT 46.3 % (39.6-50.0); HGB 14.6 g/dL (13.0-17.0); Immature Grans, Automated 0.2 %; Lymphocytes # (A) 2.46 X 10*3/uL (0.90-5.00); MCH 30.4 pg (27.0-32.0); MCHC 31.5 g/dL (32.0-37.0); MCV 96.5 fL (80.0-97.0); Monocytes # (A) 0.72 X 10*3/uL (0.20-1.00); Monocytes % (A) 7.3 %; NRBC Per 100 WBC 0 /100 WBCS (0.0-0.0); Neutrophils # (A) 6.46 X 10*3/uL (1.80-7.70); Neutrophils % (A) 65.6 %; Platelet Count 289 X 10*3/uL (140-440); WBC 9.85 X 10*3/uL (4.50-10.00)
[2021-10-16 00:30] LABS: Albumin 4.4 g/dL (3.8-4.9); Ferritin 54.8 ng/mL (22.0-322.0)
[2021-10-16 00:55] LABS: % Iron Saturation 35.38 (15.00-50.00); African American GFR (CKD) 44.1 (60.0-200.0); Anion Gap 12.2 mmol/L (10.00-18.00); BUN/Creat Ratio 12.41 Ratio (12.00-20.00); Blood Urea Nitrogen 21.6 mg/dL (9.0-27.0); Calcium 9.5 mg/dL (8.7-10.3); Carbon Dioxide 24.2 mmol/L (20.0-27.5); Magnesium 2.5 mg/dL (1.5-2.4); Non-African American GFR(CKD) 38.1 (60.0-200.0); Phosphorus 3.6 mg/dL (2.4-5.1); Potassium 4.3 mmol/L (3.5-5.5); Uric Acid 5.1 mg/dL (3.7-8.7)
[2021-10-16 02:12] LABS: Appearance,Urine Clear (Clear); Bilirubin,Urine Negative (Negative); Blood,Urine Negative (Negative); Color,Urine Yellow (Yellow); Ketones,Urine Negative (Negative); Nitrite,Urine Negative (Negative); Urobilinogen,Urine 0.2 (0.2,1.0)
== END | disposition home or self-care (01) ==
LOC: LABWHC1 15:05
PROVIDERS: ATTEND Nurse Practitioner Family
DX: D64.9 Anemia, unspecified (principal); E55.9 Vitamin D deficiency, unspecified; N39.0 Urinary tract infection, site not specified; N18.32 Chronic kidney disease, stage 3b; N25.81 Secondary hyperparathyroidism of renal origin; M10.9 Gout, unspecified; R80.9 Proteinuria, unspecified
CPT/HCPCS: 36415; 80048; 81003; 82040; 82306; 82570; 82728; 83540; 83550; 83735; 83970; 84100; 84156; 84550; 85025

== ENCOUNTER 2022-10-29 08:19 | Observation (INO) | payer MEDICARE, OTHER ==
[2022-10-29] MEDS ORDERED: NITROGLYCERIN OINT 1 INCH/GM PACKET TOPICAL STA (08:52)
[2022-10-29] MEDS ORDERED: ASPIRIN 81 MG PO STA (08:52)
--- NOTE | 2022-10-29 08:55 | ED ---
General Adult HPI - General Chief complaint: Chest Pain Stated complaint: chest pain Time Seen by Provider: 10/29/22 08:35 Source: patient, RN notes reviewed, old records reviewed Mode of arrival: ambulatory Limitations: no limitations - History of Present Illness Initial comments: This is a 72-year-old male who has a past medical history significant for aortic valve replacement 2, diabetes, high blood pressure and it family history with his mother having had a stent. Patient states patient has had some chest pain over the last month and did follow-up with Dr. Lara and had a stress test. Dr. Lara states that stress test was in perfect and he wanted to repeat it but since he started having chest pain today that radiated to his left arm he de cided come to the emergency department. Patient states the pain currently isn't as bad as it was earlier. Patient states she was somewhat short of breath with the pain. Patient denies any diaphoresis. Patient denies any nausea. Patient denies any recent fever chills or cough per patient denies any abdominal pain patient denies any vomiting or diarrhea. - Related Data Home Medications Medication Instructions Recorded Confirmed Atorvastatin [Lipitor] 40 mg PO HS 05/17/14 10/29/22 Metoprolol Succinate (ER) [Toprol 25 mg PO DAILY 05/17/14 10/29/22 XL] Cholecalciferol [Vitamin D3 (25 25 mcg PO DAILY@1200 11/26/20 10/29/22 Mcg = 1000 Iu)] Aspirin 325 mg PO DAILY 10/29/22 10/29/22 Empagliflozin [Jardiance] 25 mg PO DAILY 10/29/22 10/29/22 Insulin Glargine [Lantus Vial] 15 unit SQ DAILY@1200 10/29/22 10/29/22 Iron 28mg 28 mg PO DAILY 10/29/22 10/29/22 hydrALAZINE HCL [Apresoline] 25 mg PO BID@1200,2100 10/29/22 10/29/22 Allergies Allergy/AdvReac Type Severity Reaction Status Date / Time No Known Allergies Allergy Verified 10/29/22 10:12 Review of Systems ROS Statement: Those systems with pertinent positive or pertinent negative responses have been documented in the HPI. ROS Other: All systems not noted in ROS Statement are negative. Past Medical History Past Medical History: Diabetes Mellitus, Eye Disorder, Hyperlipidemia, Hypertension, Osteoarthritis (OA), Renal Disease Additional Past Medical History / Comment(s): hx aortic stenosis/murmur (had leena ve replacement 2012, 2018), cataracts; hx shingles 2016, hx exposure to agent orange, hx low diastolic BP, early kidney disease, optic neuropathy, History of Any Multi-Drug Resistant Organisms: None Reported Past Surgical History: Cardiac Valve Replacement, Heart Catheterization, Orthopedic Surgery Additional Past Surgical History / Comment(s): rt rotator cuff repair;. colonoscopy, sharan;. aortic valve replacement 05/2013, again in 2019 - bovine; vasectomy 32 years ago Past Anesthesia/Blood Transfusion Reactions: No Reported Reaction Past Psychological History: No Psychological Hx Reported Smoking Status: Never smoker Past Alcohol Use History: None Reported Past Drug Use History: None Reported - Past Family History Mother Additional Family Medical History / Comment(s): mom is 91 years old. had aortic stenosis/valve replacement Father Family Medical History: Diabetes Mellitus Additional Family Medical History / Comment(s): dad is 93 years old-late onset dm Brother(s) Family Medical History: Cancer General Exam - General Exam Comments Initial Comments: GENERAL: Patient is well-developed and well-nourished. Patient is nontoxic and well- hydrated and is in mild distress. ENT: Neck is soft and supple. No significant lymphadenopathy is noted. Oropharynx is clear. Moist mucous membranes. Neck has full range of motion without eliciting any pain. EYES: The sclera were anicteric and conjunctiva were pink and moist. Extraocular movements were intact and pupils were equal round and reactive to light. Eyelids were unremarkable. PULMONARY: Unlabored respirations. Good breath sounds bilaterally. No audible rales rhonchi or wheezing was noted. CARDIOVASCULAR: There is a regular rate and rhythm without any murmurs gallops or rubs. ABDOMEN: Soft and nontender with normal bowel sounds. SKIN: Skin is clear with no lesions or rashes and otherwise unremarkable. NEUROLOGIC: Patient is alert and oriented x3. Cranial nerves II through XII are grossly intact. Motor and sensory are also intact. Normal speech, volume and content. Symmetrical smile. MUSCULOSKELETAL: Normal extremities with adequate strength and full range of motion. No lower extremity swelling or edema. No calf tenderness. LYMPHATICS: No significant lymphadenopathy is noted PSYCHIATRIC: Normal psychiatric evaluation. Limitations: no limitations Course Vital Signs 10/29/22 10/29/22 08:31 09:44 Temperature 97.6 F Pulse Rate 60 55 L Respiratory 18 18 Rate Blood Pressure 161/73 141/82 O2 Sat by Pulse 99 98 Oximetry Medical Decision Making - Medical Decision Making EKG was interpreted by myself shows a sinus rhythm at 63 bpm LA interval is 170 QRS 98 QT interval 423 QTC is 429. Patient's EKG shows no ST segment elevation or depression. Was pt. sent in by a medical professional or institution (, PA, YARD STOCKER, urgent care, hospital, or snf...) When possible be specific @ -No Did you speak to anyone other than the patient for history (EMS, parent, family, police, friend...)? What history was obtained from this source @ - gave some of the history Did you review nursing and triage notes (agree or disagree)? Why? @ -I reviewed and agree with nursing and triage notes Were old charts reviewed (outside hosp., previous admission, EMS record, old EKG, old radiological studies, urgent care reports/EKG's, snf records)? Report findings @ -I reviewed prior lab work in prior EKGs as well as prior charts on this patient Differential Diagnosis (chest pain, altered mental status, abdominal pain women, abdominal pain men, vaginal bleeding, weakness, fever, dyspnea, syncope, headache, dizziness, GI bleed, back pain, seizure, CVA, palpatations, mental health, musculoskeletal)? @ -Differential Chest Pain: Stable Angina, Unstable Angina, STEMI, NSTEMI Aortic Dissection, Pneumothorax, Musculoskeletal, Esophageal Spasm GERD, Cholecystitis, Pancreatitis, Zoster, this is not meant to be an all-inclusive list. EKG interpreted by me (3pts min.). @ -As above X-rays interpreted by me (1pt min.). @ -Chest x-ray is interpreted by myself I no acute abnormalities CT interpreted by me (1pt min.). @ -None done U/S interpreted by me (1pt. min.). @ -None done What testing was considered but not performed or refused? (CT, X-rays, U/S, labs)? Why? @ -None What meds were considered but not given or refused? Why? @ -None Did you discuss the management of the patient with other professionals (professionals i.e. , PERNELL, YARD STOCKER, lab, RT, psych nurse, manager social work, patient account representative, teacher, commanding officer traffic division, family independence case manager)? Give summary @ -I spoke with Dr. harry agreed to admit the patient admitted the patient I wrote admitting orders Was smoking cessation discussed for >3mins.? @ -No Was critical care preformed (if so, how long)? @ -No Were there social determinants of health that impacted care today? How? (Homelessness, low income, unemployed, alcoholism, drug addiction, transportation, low edu. Level, literacy, decrease access to med. care, long term, rehab)? @ -No Was there de-escalation of care discussed even if they declined (Discuss DNR or withdrawal of care, Hospice)? DNR status @ -No What co-morbidities impacted this encounter? (DM, HTN, Smoking, COPD, CAD, Cancer, CVA, ARF, Chemo, Hep., AIDS, mental health diagnosis, sleep apnea, morbid obesity)? @ -Diabetes hypertension and family history Was patient admitted / discharged? Hospital course, mention meds given and route, prescriptions, significant lab abnormalities, going to OR and other pertinent info. @ -Patient received aspirin and Nitropaste while in the emergency department. Patient's chest pain was almost completely gone throughout his duration in the emergency department. I spoke with [facility] hospitalist Dr. harry he agreed to admit the patient admitted the patient wrote admitting orders Undiagnosed new problem with uncertain prognosis? @ -No Drug Therapy requiring intensive monitoring for toxicity (Heparin, Nitro, Insulin, Cardizem)? @ -No Were any procedures done? @ -No Diagnosis/symptom? @ - chest pain Acute, or Chronic, or Acute on Chronic? @ Acute uncomplicated (without systemic symptoms) or Complicated (systemic symptoms)? @ -Complicated Side effects of treatment? @ -No Exacerbation, Progression, or Severe Exacerbation? @ -No Poses a threat to life or bodily function? How? (Chest pain, [place], [place], pneumonia, PE, COPD, DKA, ARF, appy, cholecystitis, CVA, Diverticulitis, Homicidal, Suicidal, threat to staff... and all critical care pts) @ -Yes this could lead to end organ dysfunction - Lab Data Result diagrams: 10/29/22 09:02 10/29/22 09:02 Lab Results 10/29/22 10/29/22 10/29/22 Range/Units 09:02 09:02 09:02 WBC 6.3 (3.8-10.6) k/uL RBC 4.98 (4.30-5.90) m/uL Hgb 15.0 (13.0-17.5) gm/dL Hct 46.2 (39.0-53.0) % MCV 92.6 (80.0-100.0) fL MCH 30.1 (25.0-35.0) pg MCHC 32.5 (31.0-37.0) g/dL RDW 13.1 (11.5-15.5) % Plt Count 217 (150-450) k/uL MPV 8.9 Neutrophils % 57 % Lymphocytes % 32 % Monocytes % 7 % Eosinophils % 2 % Basophils % 1 % Neutrophils # 3.6 (1.3-7.7) k/uL Lymphocytes # 2.0 (1.0-4.8) k/uL Monocytes # 0.4 (0-1.0) k/uL Eosinophils # 0.1 (0-0.7) k/uL Basophils # 0.0 (0-0.2) k/uL PT 10.3 (9.0-12.0) sec INR 1.0 (<1.2) APTT 24.8 (22.0-30.0) sec Sodium 140 (137-145) mmol/L Potassium 4.7 (3.5-5.1) mmol/L Chloride 101 (98-107) mmol/L Carbon Dioxide 28 (22-30) mmol/L Anion Gap 11 mmol/L BUN 31 H (9-20) mg/dL Creatinine 1.82 H (0.66-1.25) mg/dL Est GFR (CKD-EPI)AfAm 41 (>60 ml/min/1.73 sqM) Est GFR (CKD-EPI)NonAf 36 (>60 ml/min/1.73 sqM) Glucose 162 H (74-99) mg/dL Calcium 9.4 (8.4-10.2) mg/dL Magnesium 2.4 H (1.6-2.3) mg/dL Total Bilirubin 0.5 (0.2-1.3) mg/dL AST 28 (17-59) U/L ALT 22 (4-49) U/L Alkaline Phosphatase 75 (38-126) U/L Troponin I (0.000-0.034) ng/mL Total Protein 6.9 (6.3-8.2) g/dL Albumin 4.4 (3.5-5.0) g/dL 10/29/22 Range/Units 09:02 WBC (3.8-10.6) k/uL RBC (4.30-5.90) m/uL Hgb (13.0-17.5) gm/dL Hct (39.0-53.0) % MCV (80.0-100.0) fL MCH (25.0-35.0) pg MCHC (31.0-37.0) g/dL RDW (11.5-15.5) % Plt Count (150-450) k/uL MPV Neutrophils % % Lymphocytes % % Monocytes % % Eosinophils % % Basophils % % Neutrophils # (1.3-7.7) k/uL Lymphocytes # (1.0-4.8) k/uL Monocytes # (0-1.0) k/uL Eosinophils # (0-0.7) k/uL Basophils # (0-0.2) k/uL PT (9.0-12.0) sec INR (<1.2) APTT (22.0-30.0) sec Sodium (137-145) mmol/L Potassium (3.5-5.1) mmol/L Chloride (98-107) mmol/L Carbon Dioxide (22-30) mmol/L Anion Gap mmol/L BUN (9-20) mg/dL Creatinine (0.66-1.25) mg/dL Est GFR (CKD-EPI)AfAm (>60 ml/min/1.73 sqM) Est GFR (CKD-EPI)NonAf (>60 ml/min/1.73 sqM) Glucose (74-99) mg/dL Calcium (8.4-10.2) mg/dL Magnesium (1.6-2.3) mg/dL Total Bilirubin (0.2-1.3) mg/dL AST (17-59) U/L ALT (4-49) U/L Alkaline Phosphatase (38-126) U/L Troponin I <0.012 (0.000-0.034) ng/mL Total Protein (6.3-8.2) g/dL Albumin (3.5-5.0) g/dL Disposition Clinical Impression: Chest pain Disposition: ADMITTED IP TO THIS HOSP Referrals: None,Stated [REFERRING] - 1-2 days Time of Disposition: 10:41
[2022-10-29 09:17] LABS: Basophils % (A) 1 %; Eosinophils # (A) 0.1 k/uL (0-0.7); Eosinophils % (A) 2 %; HCT 46.2 % (39.0-53.0); Lymphocytes % (A) 32 %; MCH 30.1 pg (25.0-35.0); MCHC 32.5 g/dL (31.0-37.0); MCV 92.6 fL (80.0-100.0); Mean Platelet Volume 8.9; Monocytes # (A) 0.4 k/uL (0-1.0); Monocytes % (A) 7 %; Neutrophils # (A) 3.6 k/uL (1.3-7.7); Neutrophils % (A) 57 %; Platelet Count 217 k/uL (150-450); RBC 4.98 m/uL (4.30-5.90); RDW 13.1 % (11.5-15.5); WBC 6.3 k/uL (3.8-10.6)
--- NOTE | 2022-10-29 09:22 | XR ---
EXAMINATION TYPE: XR chest 2V DATE OF EXAM: 10/29/2022 COMPARISON: NONE TECHNIQUE: PA and lateral views submitted. HISTORY: Chest pain FINDINGS: The lungs are clear and there is no pneumothorax, pleural effusion, or focal pneumonia. Heart size normal and no overt failure. Osseous structures demonstrate hypertrophic and degenerative changes of the spine. Arthropathy bilateral shoulder postsurgical changes right. Postsurgical changes involving the mediastinum. Hyperinflation suggests COPD. IMPRESSION: 1. No acute process.
[2022-10-29 09:23] LABS: Partial Thromboplastin Time 24.8 sec (22.0-30.0); Prothrombin Time 10.3 sec (9.0-12.0)
[2022-10-29 09:29] LABS: Albumin 4.4 g/dL (3.5-5.0); Calcium 9.4 mg/dL (8.4-10.2); Magnesium 2.4 mg/dL (1.6-2.3); Potassium 4.7 mmol/L (3.5-5.1); Total Bilirubin 0.5 mg/dL (0.2-1.3); Total Protein 6.9 g/dL (6.3-8.2)
[2022-10-29] MEDS ORDERED: DEXTROSE 50% SYRINGE 50 ML IVP PRN ×2 (10:31)
[2022-10-29] MEDS ORDERED: NITROGLYCERIN SL TABS 0.4 MG TAB SUBLINGUAL PRN (10:41)
--- NOTE | 2022-10-29 11:10 | P.HPIM ---
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 He feels like headedness which is mild. He denies smoking alcohol or illicit drugs. Vitals are stable He has unremarkable labs including CBC, INR, BMP and liver enzymes except for mildly elevated creatinine 1.8 times looks like his baseline His creatinine is 1.8. EKG showing normal sinus rhythm at 63, no significant ST-T changes. Review of Systems Review of systems CONSTITUTIONAL: No fever, no malaise, no fatigue. HEENT: No recent visual problems or hearing problems. Denied any sore throat. CARDIOVASCULAR: No orthopnea, PND, no palpitations, no syncope. PULMONARY: No shortness of breath, no cough, no hemoptysis. GASTROINTESTINAL: No diarrhea, no nausea, no vomiting, no abdominal pain. Normoactive bowel sounds. NEUROLOGICAL: No headaches, no weakness, no numbness. HEMATOLOGICAL: Denies any bleeding or petechiae. GENITOURINARY: Denies any burning micturition, frequency, or urgency. MUSCULOSKELETAL/RHEUMATOLOGICAL: Denies any joint pain, swelling, or any muscle pain. ENDOCRINE: Denies any polyuria or polydipsia. Past Medical History Past Medical History: Diabetes Mellitus, Eye Disorder, Hyperlipidemia, Hypertension, Osteoarthritis (OA), Renal Disease Additional Past Medical History / Comment(s): hx aortic stenosis/murmur (had valve replacement 2012, 2018), cataracts; hx shingles 2015, hx exposure to agent orange, hx low diastolic BP, early kidney disease, optic neuropathy, History of Any Multi-Drug Resistant Organisms: None Reported Past Surgical History: Cardiac Valve Replacement, Heart Catheterization, Orthopedic Surgery Additional Past Surgical History / Comment(s): rt rotator cuff repair;. colonoscopy, sharan;. aortic valve replacement 05/2013, again in 2019 - bovine; vasectomy 32 years ago Past Anesthesia/Blood Transfusion Reactions: No Reported Reaction Past Psychological History: No Psychological Hx Reported Smoking Status: Never smoker Past Alcohol Use History: None Reported Past Drug Use History: None Reported - Past Family History Mother Additional Family Medical History / Comment(s): mom is 91 years old. had aortic stenosis/valve replacement Father Family Medical History: Diabetes Mellitus Additional Family Medical History / Comment(s): dad is 93 years old-late onset dm Brother(s) Family Medical History: Cancer Medications and Allergies Home Medications Medication Instructions Recorded Confirmed Type Atorvastatin [Lipitor] 40 mg PO HS 05/17/14 10/29/22 History Metoprolol Succinate (ER) [Toprol 25 mg PO DAILY 05/17/14 10/29/22 History XL] Cholecalciferol [Vitamin D3 (25 25 mcg PO DAILY@1200 11/26/20 10/29/22 History Mcg = 1000 Iu)] Aspirin 325 mg PO DAILY 10/29/22 10/29/22 History Empagliflozin [Jardiance] 25 mg PO DAILY 10/29/22 10/29/22 History Insulin Glargine [Lantus Vial] 15 unit SQ DAILY@1200 10/29/22 10/29/22 History Iron 28mg 28 mg PO DAILY 10/29/22 10/29/22 History hydrALAZINE HCL [Apresoline] 25 mg PO BID@1200,2100 10/29/22 10/29/22 History Allergies Allergy/AdvReac Type Severity Reaction Status Date / Time No Known Allergies Allergy Verified 10/29/22 10:12 Physical Exam Vitals: Vital Signs Temp Pulse Resp BP Pulse Ox 10/29/22 09:44 55 L 18 141/82 98 10/29/22 08:31 97.6 F 60 18 161/73 99 Intake and Output 10/28/22 10/29/22 10/29/22 22:59 06:59 14:59 Other: Weight 78.925 kg GENERAL: The patient is alert and oriented x3, not in any acute distress. Well developed, well nourished. HEENT: Pupils are round and equally reacting to light. EOMI. No scleral icterus. No conjunctival pallor. Normocephalic, atraumatic. No pharyngeal erythema. No thyromegaly. CARDIOVASCULAR: S1 and S2 present. No murmurs, rubs, or gallops. PULMONARY: Chest is clear to auscultation, no wheezing or crackles. ABDOMEN: Soft, nontender, nondistended, normoactive bowel sounds. No palpable organomegaly. MUSCULOSKELETAL: No joint swelling or deformity. EXTREMITIES: No cyanosis, clubbing, or pedal edema. NEUROLOGICAL: Gross neurological examination did not reveal any focal deficits. SKIN: No rashes. no petechiae. Results CBC & Chem 7: 10/29/22 09:02 10/29/22 09:02 Labs: Abnormal Lab Results - Last 24 Hours (Table) 10/29/22 Range/Units 09:02 BUN 31 H (9-20) mg/dL Creatinine 1.82 H (0.66-1.25) mg/dL Glucose 162 H (74-99) mg/dL Magnesium 2.4 H (1.6-2.3) mg/dL Assessment and Plan Assessment: Chest pain, rule out cardiac causes Diabetes mellitus Hypertension Hyperlipidemia Chronic kidney disease stage III Plan: Continuous suture troponin Continue with aspirin Cardiology consult he was on long-acting insulin 15 units at home, will hold now as his sugar is low normal with insulin sliding scale Labs and medication were reviewed.. Continue same treatment. Continue with symptomatic treatment. Resume home medication. Monitor labs and vitals. DVT and GI prophylaxis. Further recommendations as per clinical course of the patient DVT prophylaxis: Subcutaneous heparin GI Prophylaxis: Pepcid PT/OT: Pending Prognosis is guarded
[2022-10-29] MEDS: INSULIN ASPART (NovoLOG) 100 UNIT/ML VIAL SQ SCH ×3 (11:37→20:58)
[2022-10-29 11:38] LABS: Glucose,Whole Blood 123 mg/dL (70-110)
[2022-10-29] MEDS: NITROGLYCERIN OINT 1 INCH/GM PACKET TOPICAL SCH ×3 (11:40→23:16)
[2022-10-29] MEDS: hydrALAZINE HCL 25 MG TAB PO SCH ×2 (11:40→20:58)
[2022-10-29] MEDS: CHOLECALCIFEROL 25 MCG (1000 IU) TABLET PO SCH (11:40)
--- NOTE | 2022-10-29 12:12 | P.CRDCN ---
History of Present Illness Consult date: 10/29/22 Requesting physician: Waqar E Federico Reason for Consult (text): chest pain Chief complaint: chest pain History of present illness: Is a pleasant 72-year-old gentleman who follows with Dr. Lara in the office. 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 Was seen in the office about a month ago with complaints of chest discomfort that he described as a crowding in his chest and he felt was esophageal in na ture. He underwent testing including an echocardiogram in September which showed normal LV systolic function with normal bile prosthetic aortic valve, mild MR and mild TR. 24-hour Holter monitor showed normal sinus mechanism. He underwent a treadmill exercise stress test that was moderately positive. He was seen in follow-up on the first of this month and was scheduled to undergo Cardiolite stress test prior to next office visit as an outpatient. The patient presented to the emergency department after waking this morning and developing some chest discomfort. The discomfort was brief and sharp in nature and at times worse with deep inspiration. First troponin was negative and EKG shows no evidence of ischemia. Upon examination the patient is resting comfortably in the emergency department. He use to complain of discomfort in the chest with deep inspiration. He denies any shortness of breath and walks daily. He has occasional lower extremity edema. He denies any orthopnea or PND. He has had no palpitations. He's had no dizziness or syncope. He did complain of some mild lightheadedness this morning that has subsided. Past Medical History Past Medical History: Diabetes Mellitus, Eye Disorder, Hyperlipidemia, Hypertension, Osteoarthritis (OA), Renal Disease Additional Past Medical History / Comment(s): hx aortic stenosis/murmur (had valve replacement 2012, 2018), cataracts; hx shingles 2016, hx exposure to agent orange, hx low diastolic BP, early kidney disease, optic neuropathy, History of Any Multi-Drug Resistant Organisms: None Reported Past Surgical History: Cardiac Valve Replacement, Heart Catheterization, Orthopedic Surgery Additional Past Surgical History / Comment(s): rt rotator cuff repair;. colonoscopy, sharan;. aortic valve replacement 05/2013, again in 2019 - bovine; vasectomy 32 years ago Past Anesthesia/Blood Transfusion Reactions: No Reported Reaction Past Psychological History: No Psychological Hx Reported Smoking Status: Never smoker Past Alcohol Use History: None Reported Past Drug Use History: None Reported - Past Family History Mother Additional Family Medical History / Comment(s): mom is 91 years old. had aortic stenosis/valve replacement Father Family Medical History: Diabetes Mellitus Additional Family Medical History / Comment(s): dad is 93 years old-late onset dm Brother(s) Family Medical History: Cancer Medications and Allergies Home Medications Medication Instructions Recorded Confirmed Type Atorvastatin [Lipitor] 40 mg PO HS 05/17/14 10/29/22 History Metoprolol Succinate (ER) [Toprol 25 mg PO DAILY 05/17/14 10/29/22 History XL] Cholecalciferol [Vitamin D3 (25 25 mcg PO DAILY@1200 11/26/20 10/29/22 History Mcg = 1000 Iu)] Aspirin 325 mg PO DAILY 10/29/22 10/29/22 History Empagliflozin [Jardiance] 25 mg PO DAILY 10/29/22 10/29/22 History Insulin Glargine [Lantus Vial] 15 unit SQ DAILY@1200 10/29/22 10/29/22 History Iron 28mg 28 mg PO DAILY 10/29/22 10/29/22 History hydrALAZINE HCL [Apresoline] 25 mg PO BID@1200,2100 10/29/22 10/29/22 History Allergies Allergy/AdvReac Type Severity Reaction Status Date / Time No Known Allergies Allergy Verified 10/29/22 10:12 Physical Exam Vitals: Vital Signs Temp Pulse Resp BP Pulse Ox 10/29/22 11:35 53 L 18 141/78 98 10/29/22 11:10 55 L 18 136/75 97 10/29/22 10:37 53 L 18 90/74 97 10/29/22 09:44 55 L 18 141/82 98 10/29/22 08:31 97.6 F 60 18 161/73 99 Intake and Output 10/28/22 10/29/22 10/29/22 22:59 06:59 14:59 Other: Weight 78.925 kg PHYSICAL EXAMINATION: This is a 72-year-old gentleman in no apparent distress at the time of my examination. HEENT: Head is atraumatic, normocephalic. Pupils are equal, round. Sclerae anicteric. Conjunctivae are clear. Mucous membranes of the mouth are moist. Neck is supple. There is no elevated jugular venous pressure. No carotid bruit is heard. CHEST EXAMINATION: Clear to auscultation bilaterally. No wheezes rales or rhonchi. Respirations even and nonlabored. HEART EXAMINATION: Heart regular, positive S1 and S2. No S3. No S4. With a murmur at the base. ABDOMEN: Soft, nontender. Bowel sounds are heard. No organomegaly noted. EXTREMITIES: 2+ peripheral pulses with no evidence of peripheral edema and no calf tenderness noted. NEUROLOGIC EXAMINATION: Patient is awake, alert and oriented x3. Results 10/29/22 09:02 10/29/22 09:02 Cardiac Enzymes 10/29/22 10/29/22 Range/Units 09:02 09:02 AST 28 (17-59) U/L Troponin I <0.012 (0.000-0.034) ng/mL Coagulation 10/29/22 Range/Units 09:02 PT 10.3 (9.0-12.0) sec APTT 24.8 (22.0-30.0) sec CBC 10/29/22 Range/Units 09:02 WBC 6.3 (3.8-10.6) k/uL RBC 4.98 (4.30-5.90) m/uL Hgb 15.0 (13.0-17.5) gm/dL Hct 46.2 (39.0-53.0) % Plt Count 217 (150-450) k/uL Comprehensive Metabolic Panel 10/29/22 Range/Units 09:02 Sodium 140 (137-145) mmol/L Potassium 4.7 (3.5-5.1) mmol/L Chloride 101 (98-107) mmol/L Carbon Dioxide 28 (22-30) mmol/L BUN 31 H (9-20) mg/dL Creatinine 1.82 H (0.66-1.25) mg/dL Glucose 162 H (74-99) mg/dL Calcium 9.4 (8.4-10.2) mg/dL AST 28 (17-59) U/L ALT 22 (4-49) U/L Alkaline Phosphatase 75 (38-126) U/L Total Protein 6.9 (6.3-8.2) g/dL Albumin 4.4 (3.5-5.0) g/dL Current Medications Generic Name Dose Route Start Last Admin Trade Name Freq PRN Reason Stop Dose Admin Aspirin 325 mg 10/30/22 09:00 Aspirin 325 Mg Tab PO DAILY [facility] Aspirin 325 mg 10/30/22 09:00 Aspirin 325 Mg Tab PO DAILY [facility] Atorvastatin Calcium 40 mg 10/29/22 21:00 Atorvastatin 40 Mg Tab PO HS [facility] Cholecalciferol 25 mcg 10/29/22 12:00 10/29/22 11:40 Cholecalciferol 25 Mcg (1000 Iu) Tablet PO 25 mcg DAILY@1200 [facility] Administration Dextrose/Water 25 ml 10/29/22 10:31 Dextrose 50% Syringe 50 Ml IVP PER PROTOCOL PRN Hypoglycemia Protocol Dextrose/Water 50 ml 10/29/22 10:31 Dextrose 50% Syringe 50 Ml IVP PER PROTOCOL PRN Hypoglycemia Protocol Hydralazine HCl 25 mg 10/29/22 12:00 10/29/22 11:40 Hydralazine Hcl 25 Mg Tab PO 25 mg BID@1200,2100 [facility] Administration Insulin Aspart 0 unit 10/29/22 12:30 10/29/22 11:37 Insulin Aspart (Novolog) 100 Unit/Ml Vial SQ Not Given ACHS [facility] Protocol Metoprolol Succinate 25 mg 10/30/22 09:00 Metoprolol Succinate (Er) 25 Mg Tab.Er.24h PO DAILY [facility] Nitroglycerin 0.4 mg 10/29/22 10:41 Nitroglycerin Sl Tabs 0.4 Mg Tab SUBLINGUAL Q5M PRN Chest Pain Nitroglycerin 1 inch 10/29/22 12:00 10/29/22 11:40 Nitroglycerin Oint 1 Inch/Gm Packet TOPICAL 1 inch Q6HR [facility] Administration Intake and Output 10/28/22 10/29/22 10/29/22 22:59 06:59 14:59 Other: Weight 78.925 kg Patient Weight 10/30/22 06:59 Weight 78.925 kg 10/29/22 09:02 10/29/22 09:02 EKG Interpretations (text) Sinus rhythm Assessment and Plan Assessment: 1 chest pain, seems to be noncardiac, troponin negative 1 and EKG shows no ischemia however patient did have a recent moderately positive exercise stress test #2 status post aortic valve replacement 2 #3 hypertension #4 hyperlipidemia #5 diabetes #6 chronic kidney disease Plan: From cardiology's perspective records from the office were reviewed. No need to repeat echocardiogram. Continue to trend the troponins. If troponins remain negative we will schedule the patient for nuclear study tomorrow. We will continue to follow the patient provide further recommendations accordingly. CONTROL BOARD OPERATOR note has been reviewed, I agree with a documented findings and plan of care. Patient was seen and examined.
[2022-10-29 17:28] LABS: Glucose,Whole Blood 104 mg/dL (70-110)
[2022-10-29 20:51] LABS: Glucose,Whole Blood 165 mg/dL (70-110)
[2022-10-29] MEDS ORDERED: ATORVASTATIN 40 MG TAB PO SCH (21:00)
[2022-10-30] MEDS: INSULIN ASPART (NovoLOG) 100 UNIT/ML VIAL SQ SCH ×2 (05:31→14:08)
[2022-10-30] MEDS: NITROGLYCERIN OINT 1 INCH/GM PACKET TOPICAL SCH ×2 (05:31→14:08)
[2022-10-30 05:33] LABS: Glucose,Whole Blood 106 mg/dL (70-110)
[2022-10-30] MEDS ORDERED: AMINOPHYLLINE 500 MG/20 ML VIAL IV PRN (08:35)
[2022-10-30] MEDS ORDERED: REGADENOSON 0.4 MG/5 ML SYRINGE IV PRN (08:35)
[2022-10-30] MEDS ORDERED: CAFFEINE CITRATE 60 MG/3 ML VIAL IV PRN (08:35)
[2022-10-30 08:54] LABS: Chol/HDL Ratio 2.41 Ratio; LDL Cholesterol,Calculated 48.5 mg/dL (0.0-131.0)
[2022-10-30 08:57] VITALS: BP 123/69; PULSE 61; RESP 16; TEMP 97.7
[2022-10-30] MEDS ORDERED: ASPIRIN 325 MG TAB PO SCH ×2 (09:00)
[2022-10-30] MEDS ORDERED: METOPROLOL SUCCINATE (ER) 25 MG TAB.ER.24H PO SCH (09:00)
--- NOTE | 2022-10-30 09:31 | P.PN ---
Subjective Progress Note Date: 10/30/22 History of present illness: Is a pleasant 72-year-old gentleman who follows with Dr. Lara in the office. 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 Was seen in the office about a month ago with complaints of chest discomfort that he described as a crowding in his chest and he felt was esophageal in nature. He underwent testing including an echocardiogram in September which showed normal LV systolic function with normal bile prosthetic aortic valve, mild MR and mild TR. 24-hour Holter monitor showed normal sinus mechanism. He underwent a treadmill exercise stress test that was moderately positive. He was seen in follow-up on the first of this month and was scheduled to undergo Cardi olite stress test prior to next office visit as an outpatient. The patient presented to the emergency department after waking this morning and developing some chest discomfort. The discomfort was brief and sharp in nature and at times worse with deep inspiration. First troponin was negative and EKG shows no evidence of ischemia. Upon examination the patient is resting comfortably in the emergency department. He use to complain of discomfort in the chest with deep inspiration. He denies any shortness of breath and walks daily. He has occasional lower extremity edema. He denies any orthopnea or PND. He has had no palpitations. He's had no dizziness or syncope. He did complain of some mild lightheadedness this morning that has subsided. 5/5 Patient states he does have some mid chest discomfort but much improved from yesterday. Third troponin came back negative and patient will be scheduled for Lexiscan stress test today. Patient has been afebrile, heart rate in the 60s, blood pressure 123/69, pulse ox 97% on room air. Triglycerides 100, cholesterol 117, LDL 48, HDL 48. PHYSICAL EXAMINATION: This is a 72-year-old gentleman in no apparent distress at the time of my exa mination. HEENT: Head is atraumatic, normocephalic. Pupils are equal, round. Sclerae anicteric. Conjunctivae are clear. Mucous membranes of the mouth are moist. Neck is supple. There is no elevated jugular venous pressure. No carotid bruit is heard. CHEST EXAMINATION: Clear to auscultation bilaterally. No wheezes rales or rhonchi. Respirations even and nonlabored. HEART EXAMINATION: Heart regular, positive S1 and S2. No S3. No S4. With a murmur at the base. ABDOMEN: Soft, nontender. Bowel sounds are heard. No organomegaly noted. EXTREMITIES: 2+ peripheral pulses with no evidence of peripheral edema and no calf tenderness noted. NEUROLOGIC EXAMINATION: Patient is awake, alert and oriented x3. Assessment: 1 chest pain, seems to be noncardiac, troponin negative 1 and EKG shows no ischemia however patient did have a recent moderately positive exercise stress test #2 status post aortic valve replacement 2 #3 hypertension #4 hyperlipidemia #5 diabetes #6 chronic kidney disease Plan: Patient will be scheduled for Lexiscan stress test today. If this is within normal limits, patient is cleared for discharge home. Continue patient's current cardiac medications and he may follow up in the office in one to 2 weeks. Nurse practitioner note has been reviewed, I agree with the documented findings and plan of care. Patient was seen and examined. Objective - Vital Signs Vital signs: Vital Signs Temp 98.2 F 10/30/22 02:03 Pulse 69 10/30/22 02:03 Resp 18 10/30/22 02:03 BP 137/75 10/30/22 02:03 Pulse Ox 97 10/30/22 02:03 FiO2 Intake & Output 10/29/22 10/30/22 10/30/22 18:59 06:59 18:59 Intake Total 236 Balance 236 Weight 78.925 kg Intake: Oral 236 Other: Voiding Method Toilet Toilet # Voids 1 2 - Labs CBC & Chem 7: 10/29/22 09:02 10/29/22 09:02 Labs: Abnormal Lab Results - Last 24 Hours (Table) 10/29/22 10/29/22 10/29/22 Range/Units 09:02 11:36 20:49 BUN 31 H (9-20) mg/dL Creatinine 1.82 H (0.66-1.25) mg/dL Glucose 162 H (74-99) mg/dL POC Glucose (mg/dL) 123 H 165 H (70-110) mg/dL Magnesium 2.4 H (1.6-2.3) mg/dL
--- NOTE | 2022-10-30 12:41 | NM ---
EXAMINATION TYPE: NM stress lexiscan cardiolite DATE OF EXAM: 10/30/2022 COMPARISON: NONE CLINICAL INDICATION: Male, 72 years old with history of chest pain; TECHNIQUE: After the intravenous administration of 10.16 mCi Tc 99m Sestamibi - Cardiolite resting S PECT images acquired 45 minutes post injection. The patient received 0.4mg Lexiscan, 26.5 mCi Tc 99m Sestamibi - Stress images obtained [address] injection FINDINGS: Review of stress and rest SPECT images demonstrates no distinct perfusion abnormality. Gated analysi s shows normal wall motion with an estimated left ventricular ejection fraction of 78 %. IMPRESSION: No scintigraphic evidence for reversible ischemia.
[2022-10-30 12:44] LABS: Glucose,Whole Blood 118 mg/dL (70-110)
--- NOTE | 2022-10-30 13:10 | CA ---
Lexiscan Nuclear Stress Test Report Name: Hay Rodriguez Exam Date: 10/30/2022 10:52 Exam Location: [facility] Stress Ht (in): 69 Wt (lb): 174 BSA: 1.95 Ordering Phys: Georgina Singh MD Referring Phys: DAPHNIE, Technologist: Kenji Gore Age: 72 Gender: M : 1950 Procedure CPT: Indications: Reflex order-Stress test ICD-10 Codes: Patient History: CHEST PAIN, PALPITATIONS, HTN, DIABETIC, ELEVATED CHOLESTEROL LEVELS, FAMILY HX OF HEART DISEASE, PRIOR CARDIAC CATH Medications: Meds past 24 hrs: Pretest Chest Pain: STRESS TEST Lexiscan Protocol Exercise Duration (min:sec): 02:[address] Depressions (mm): Angina Score: Amezcua Score: Resting HR (bpm): 62 Peak HR (bpm): 103 Resting BP (mmHg): 157 / 80 Peak BP (mmHg): 157 / 80 MPHR: 146 Target HR: 124 % MPHR: 71 METS: 1.0 Total Dose: Peak Dose: Atropine: Double Product: 35486 BP Response: Stress Termination: INFUSION COMPLETE Stress Symptoms: NO SYMPTOMS Stress Summary: ECG ANALYSIS Resting ECG: Sinus rhythm. Normal conduction. No arrhythmias. Normal repolarization. Stress ECG: No ECG changes from baseline with Lexiscan infusion. CONCLUSIONS No ECG evidence of ischemia with Lexiscan infusion. Nuclear test results to follow. Dr. Georgina Singh MD (Electronically Signed) Final Date: 30 Oct 2022 13:09
[2022-10-30] MEDS: CHOLECALCIFEROL 25 MCG (1000 IU) TABLET PO SCH (14:08)
[2022-10-30] MEDS: hydrALAZINE HCL 25 MG TAB PO SCH (14:08)
--- NOTE | 2022-10-31 00:25 | P.DS ---
Providers Date of admission: 10/29/22 10:42 Attending physician: Waqar Caballero MD Consults: 10/29/22 10:41 Consult Physician Urgent Consulting Provider: [facility] Consult Reason/Comments: Chest pain Do you want consulting provider notified?: Yes Primary care physician: [facility] Course: Diagnoses: Chest pain, cardiac causes were ruled out. Completely resolved Diabetes mellitus Hypertension Hyperlipidemia Chronic kidney disease stage III Hospital course: This is a pleasant 72 years old female with past medical history diabetes mellitus, hypertension, hyperlipidemia he states he is emptied and taken distribution lead Dr. Lara Patient presents because of chest pain started this morning The central chest pain radiating to the left arm about 7/10 in severity, Nons pecific that comes and goes with no relieving or precipitating factors No dyspnea, and No change in urine or bowel habits. He feels like headedness which is mild. He denies smoking alcohol or illicit drugs. Vitals are stable He has unremarkable labs including CBC, INR, BMP and liver enzymes except for mildly elevated creatinine 1.8 times looks like his baseline His creatinine is 1.8. EKG showing normal sinus rhythm at 63, no significant ST-T changes. Patient was evaluated by distribution lead and underwent stress test which came back negative and patient was cleared for discharge by distribution lead On the day of discharge patient just been completely resolved as he told me, also denies any new symptoms. No dyspnea, no change in urine or bowel habits, no fever. No headache confusion weakness or numbness. Today patient was up in his room talking in walking freely with no difficulty. Patient was cleared for discharge by distribution lead Problems and management plan were discussed with the patient and he verbalized understanding and acceptance Patient was found stable and can be discharged home in guarded prognosis however he needs follow-up as an outpatient. Patient was instructed to follow up with PCP within one week and patient agrees Patient was instructed to follow up with his distribution lead Dr. Lara in one week and he agrees with the appointments made for him on 11/05 Physical exam Gen: patient is a AAOx3, no distress CVS: S1-S2, RRR, no murmur Lungs: B/L CTA, no wheezing Abdomen: soft, no distention, no tenderness, positive bowel sounds Extremity: no leg edema or induration Time spent more than 35 minutes Plan - Discharge Summary Discharge Rx Participant: No New Discharge Prescriptions: New Nitroglycerin Sl Tabs [Nitrostat] 0.4 mg SUBLINGUAL Q5M PRN #20 tab PRN Reason: Chest Pain Continue Metoprolol Succinate (ER) [Toprol XL] 25 mg PO DAILY Atorvastatin [Lipitor] 40 mg PO HS Cholecalciferol [Vitamin D3 (25 Mcg = 1000 Iu)] 25 mcg PO DAILY@1200 Insulin Glargine [Lantus Vial] 15 unit SQ DAILY@1200 Iron 28mg 28 mg PO DAILY hydrALAZINE HCL [Apresoline] 25 mg PO BID@1200,2100 Empagliflozin [Jardiance] 25 mg PO DAILY Aspirin 325 mg PO DAILY Discharge Medication List Atorvastatin [Lipitor] 40 mg PO HS 05/17/14 [History] Metoprolol Succinate (ER) [Toprol XL] 25 mg PO DAILY 05/17/14 [History] Cholecalciferol [Vitamin D3 (25 Mcg = 1000 Iu)] 25 mcg PO DAILY@1200 11/26/20 [History] Aspirin 325 mg PO DAILY 10/29/22 [History] Empagliflozin [Jardiance] 25 mg PO DAILY 10/29/22 [History] Insulin Glargine [Lantus Vial] 15 unit SQ DAILY@1200 10/29/22 [History] Iron 28mg 28 mg PO DAILY 10/29/22 [History] hydrALAZINE HCL [Apresoline] 25 mg PO BID@1200,2100 10/29/22 [History] Nitroglycerin Sl Tabs [Nitrostat] 0.4 mg SUBLINGUAL Q5M PRN #20 tab 10/30/22 [Rx] Follow up Appointment(s)/Referral(s): None,Stated [REFERRING] - 1-2 days Grant Lara MD [STAFF PHYSICIAN] - 11/05/22 2:30 pm Activity/Diet/Wound Care/Special Instructions: heart healthy diet, low carbohydrate diet 1600 k [place] per day activity is restricted till you see your doctor we recommend to check your glucose 4 times per day ,before each meal and at bed time, keep the results in your log book and bring it to your doctor on your appointment date if your glucose is less than 70 or more than 400 then call 911 and come to emergency room Discharge Disposition: HOME SELF-CARE
== END 2022-10-30 16:36 | disposition home or self-care (01) ==
LOC: EC 08:19 → 6NMEDSUR 10:42
PROVIDERS: ADMIT Internal Medicine; ATTEND Internal Medicine
DX: R07.89 Other chest pain (principal); I12.9 Hypertensive chronic kidney disease with stage 1 through stage 4 chronic kidney disease, or unspecified chronic kidney disease; N18.30 Chronic kidney disease, stage 3 unspecified; E11.22 Type 2 diabetes mellitus with diabetic chronic kidney disease; E78.5 Hyperlipidemia, unspecified; H54.7 Unspecified visual loss; M19.90 Unspecified osteoarthritis, unspecified site; H26.9 Unspecified cataract; H46.9 Unspecified optic neuritis; Z77.098 Contact with and (suspected) exposure to other hazardous, chiefly nonmedicinal, chemicals; Z79.82 Long term (current) use of aspirin; Z79.899 Other long term (current) drug therapy; Z95.3 Presence of xenogenic heart valve; Z98.52 Vasectomy status; Z98.890 Other specified postprocedural states; Z79.84 Long term (current) use of oral hypoglycemic drugs; Z79.4 Long term (current) use of insulin; Z83.3 Family history of diabetes mellitus; Z82.49 Family history of ischemic heart disease and other diseases of the circulatory system; Z80.9 Family history of malignant neoplasm, unspecified
CPT/HCPCS: 99285; 36415; 93005; 93017; 80061; 80053; 83735; 84484; 85025; 85610; 85730; 83036; 71046; 78452; G0378 ×2; A9500; J2785